=== PATIENT | female | born 1990 | race Caucasian/White ===

== ENCOUNTER 2021-01-12 09:23 | Emergency (ER) | payer OTHER, SELFPAY ==
[2021-01-12 09:32] VITALS: BP 170/92; PULSE 86; RESP 18; TEMP 36.6; O2SAT 97; BMI 36.3
--- NOTE | 2021-01-12 09:42 | CT_ITS ---
WS: [id number] CT ABDOMEN AND PELVIS WITH CONTRAST HISTORY: RLQ pain, sudden onset TECHNIQUE: Imaging performed of the abdomen and pelvis with IV contrast. Single phase imaging of the abdomen. Coronal and sagittal reformats are submitted. All CT scans at [facility] use at least one of these dose optimization techniques: automated exposure control; mA and/or kV adjustment per patient size (includes targeted exams where dose is matched to clinical indication); or iterativ e reconstruction. IV CONTRAST: Omnipaque 300; 95 mL IV. Oral contrast: No DLP: 1731.57 mGy.cm COMPARISON: 12/15/2014 Lower thorax: Lung bases are clear. Heart is normal size. Small hiatal hernia. Bilateral breast impla nts. Liver/biliary system: Normal size with no intrahepatic dilatation. Gallbladder: Normal. No gallstones or wall thickening. No pericholecystic fluid. Pancreas: Normal size pancreas and pancreatic duct. No adjacent inflammation. Spleen: Normal size spleen. No mass or infarct. Adrenal glands: Normal. Right kidney: Normal. Left kidney: Normal. Aorta: Normal. Lymphadenopathy: None. Free fluid: None. GI tract: Normal appendix. No obstruction or wall thickening. No colitis. Abdominal wall: Fat containing umbilical hernia. Pelvis: No free fluid or adenopathy within the pelvis. Bones: Unremarkable. CT/CT abdomen pelvis w con* [id number] IMPRESSION: 1. No renal stone or obstruction. 2. Normal appendix. 3. No GI tract obstruction. 4. No free air or free fluid.
--- NOTE | 2021-01-12 09:43 | W.ED.ABDPA2 ---
HPI - Abdominal Pain General: Chief Complaint: Abdominal Pain Stated Complaint: R side ABD pain Time Seen by Provider: 01/12/21 09:34 History of Present Illness: HPI narrative: Patient states she was doing fine till about 0 900 this morning had sudden onset right lower quadrant pain. Denies fever chills. Patient says she does feel nauseous and has not ate anything this morning. Has had a history of pyelonephritis. Is on Depo-Provera shot. MD elicited complaint: abdominal pain Pertinent past history: other (Pyelonephritis requiring hospitalization) Onset (ago): minute(s) Pain Consistency: constant Location: RLQ Severity: severe Quality: stabbing Radiation: none Exacerbating factors: nothing Relieving factors: nothing Associated Symptoms: Reports nausea; Denies chills and fever(s) Review of Systems Const: Denies: fever(s), chills or body aches Eyes: Denies: change in vision or blurry vision ENMT: Denies: throat pain or nasal congestion Card: Denies: chest pain or dyspnea on exertion Resp: Denies: dyspnea, productive cough or non-productive cough GI: Reports: abdominal pain and nausea Musc: Denies: extremity pain Skin/Breast: Denies: rash Neuro: Denies: headache(s) Psych: Denies: anxiety or depression Asif/Lymph: Denies: easy bruising Physical Exam Const: COMMON NORMALS: no acute distress, average body habitus and patient oriented x3 HENMT: COMMON NORMALS: normocephalic HEAD & SCALP: normal to inspection and normocephalic FACE & SINUS: normal facial exam Eye: COMMON NORMALS: conjunctivae normal GENERAL EYE: appearance normal, both eyes and all related structures CONJUNCTIVA: Yes conjunctivae normal Neck/C-Spine: COMMON NORMALS: no JVD Chest: COMMONS NORMALS: normal inspection of the chest Resp: COMMON NORMALS: normal respiratory effort and clear to auscultation bilaterally AUSCULTATION: clear to auscultation bilaterally Cardio: COMMON NORMALS: no JVD, regular rate and regular rhythm RATE: regular rate RHYTHM: regular rhythm GI: INSPECTION: Yes normal to inspection AUSCULTATION: Yes normoactive bowel sounds PALPATION: Yes Tenderness to palpation present (GI) Details: RLQ Extremity: COMMON NORMALS: normal to inspection and full ROM Neuro: COMMON NORMALS: patient oriented x3 Course Vital Signs: Vital signs: Vital Signs Temperature 98 F 01/12/21 09:32 Pulse Rate 86 01/12/21 09:32 Respiratory Rate 18 01/12/21 09:32 Blood Pressure 170/92 01/12/21 09:32 Pulse Oximetry 97 01/12/21 09:32 MDM - Abdominal Pain MDM Narrative: Medical decision making narrative: Radiology study was negative. Labs reveal slight increased white blood cell count and what appears to be a UTI. Patient was pain-free by the end of visit here. Lab Data: Labs: Lab Results 01/12/21 01/12/21 01/12/21 Range/Units 09:56 09:56 09:56 WBC 11.6 H (4.0-10.0) 10^3/ uL RBC 5.01 (4.1-5.3) 10^6/u L Hgb 15.6 H (11.5-15.3) g/dL Hct 44.7 (37.0-47.0) % MCV 89.2 (81-99) fL MCH 31.1 (28.0-34.0) pg MCHC 34.9 (30.0-36.0) g/dL RDW 11.6 L (12.1-15.1) % Plt Count 346 (130-400) 10^3/c mm MPV 10.2 (7.4-10.4) fL Neut % (Auto) 75.3 % Lymph % (Auto) 17.3 % [place] % (Auto) 5.5 % Eos % (Auto) 1.1 % Baso % (Auto) 0.5 % Neut # (Auto) 8.73 H (1.8-7.7) 10^3/u L Lymph # (Auto) 2.0 (0.8-4.8) 10^3/u L [place] # (Auto) 0.6 (0.2-0.9) 10^3/u L Eos # (Auto) 0.1 (0.0-0.8) 10^3/u L Baso # (Auto) 0.1 (0.0-0.1) 10^3/u L Nucleated RBC % (a uto) 0 % Nucleated RBCs # 0.0 /100WBC Sodium 138 (136-145) mmol/L Potassium 3.9 (3.5-5.1) mmol/L Chloride 104 (98-107) mmol/L Carbon Dioxide 22 (22-29) mmol/L Anion Gap 15.9 (5-19) BUN 8 (6-20) mg/dL Creatinine 0.7 (0.5-0.9) mg/dL GFR Calculation 97.0 (90-130) mL/min Glucose 106 (65-115) mg/dL Calculated Osmolal ity 285 (285-295) mOsm/k g Calcium 9.4 (8.5-10.5) mg/dL Total Bilirubin 0.4 (0.15-1.2) mg/dL AST 12 (0-32) U/L ALT 13 (0-33) U/L Alkaline Phosphata se 80 (35-105) IU/L Total Protein 7.4 (6.6-8.7) g/dL Albumin 4.6 (3.5-5.2) g/dL Globulin 2.8 (1.3-4.6) g/dL Lipase 119 H (13-60) U/L HCG, Qual Negative (Negative) Urine Color (Yellow) Urine Appearance (CLEAR) Urine pH (5-7) Ur Specific Gravit y (1.005-1.030) Urine Protein (Negative) Urine Glucose (UA) (Normal) Urine Ketones (Negative) Urine Blood (Negative) Urine Nitrate (Negative) Urine Bilirubin (Negative) Urine Urobilinogen (Negative) mg/dL Ur Leukocyte Lizeth ase (Negative) Urine RBC (0-2) /hpf Urine WBC (0-5) /hpf Ur Squamous Epith Cells (0-5) /hpf Amorphous Sediment Urine Bacteria (NONE) /hpf 01/12/21 Range/Units 10:00 WBC (4.0-10.0) 10^3/ uL RBC (4.1-5.3) 10^6/u L Hgb (11.5-15.3) g/dL Hct (37.0-47.0) % MCV (81-99) fL MCH (28.0-34.0) pg MCHC (30.0-36.0) g/dL RDW (12.1-15.1) % Plt Count (130-400) 10^3/c mm MPV (7.4-10.4) fL Neut % (Auto) % Lymph % (Auto) % [place] % (Auto) % Eos % (Auto) % Baso % (Auto) % Neut # (Auto) (1.8-7.7) 10^3/u L Lymph # (Auto) (0.8-4.8) 10^3/u L [place] # (Auto) (0.2-0.9) 10^3/u L Eos # (Auto) (0.0-0.8) 10^3/u L Baso # (Auto) (0.0-0.1) 10^3/u L Nucleated RBC % (a uto) % Nucleated RBCs # /100WBC Sodium (136-145) mmol/L Potassium (3.5-5.1) mmol/L Chloride (98-107) mmol/L Carbon Dioxide (22-29) mmol/L Anion Gap (5-19) BUN (6-20) mg/dL Creatinine (0.5-0.9) mg/dL GFR Calculation (90-130) mL/min Glucose (65-115) mg/dL Calculated Osmolal ity (285-295) mOsm/k g Calcium (8.5-10.5) mg/dL Total Bilirubin (0.15-1.2) mg/dL AST (0-32) U/L ALT (0-33) U/L Alkaline Phosphata se (35-105) IU/L Total Protein (6.6-8.7) g/dL Albumin (3.5-5.2) g/dL Globulin (1.3-4.6) g/dL Lipase (13-60) U/L HCG, Qual (Negative) Urine Color Yellow (Yellow) Urine Appearance Clear (CLEAR) Urine pH 6.5 (5-7) Ur Specific Gravit y 1.010 (1.005-1.030) Urine Protein Neg (Negative) Urine Glucose (UA) Norm (Normal) Urine Ketones Negative (Negative) Urine Blood 2+ H (Negative) Urine Nitrate Negative (Negative) Urine Bilirubin Neg (Negative) Urine Urobilinogen Norm (Negative) mg/dL Ur Leukocyte Lizeth ase Negative (Negative) Urine RBC 10-15 H (0-2) /hpf Urine WBC 0-4 H (0-5) /hpf Ur Squamous Epith Cells 0-4 H (0-5) /hpf Amorphous Sediment Not Reportable Urine Bacteria 4+ H (NONE) /hpf Discharge Plan Discharge Patient Disposition: Home Clinical Impression: Elevated lipase Abdominal pain Qualifiers: Abdominal location: right lower quadrant Qualified Code(s): R10.31 - Right lower quadrant pain UTI (urinary tract infection) Qualifiers: Urinary tract infection type: acute cystitis Hematuria presence: with hematuria Qualified Code(s): N30.01 - Acute cystitis with hematuria Condition: Stable Prescriptions: New Zofran 4 mg tablet 4 mg PO Q8H 3 Days Qty: 9 RF: 0 Macrobid 100 mg capsule 100 mg PO BID 5 Days Qty: 10 RF: 0 Discharge Orders: Discharge ED (Routine); Ordered 01/12/21 Ordered By: Henry Mullins Discharge Diet: Advance as tolerated Discharge Activity: Resume usual activity Patient Instructions: Urinary Tract Infection in Women (ED) Activity Restrictions/Additional Instructions: Follow-up with medical provider as directed. Take medications as prescribed. Return to the ER or your medical provider if condition worsens. Please read and understand discharge instructions. If any questions ask please. Follow-up with your primary care provider first next week repeat urine level and lipase level. Coding Level of Care Code ED Latin Professor for Gautam Fwd Exam Comprehensive
[2021-01-12] MEDS: ondansetron 2 mg/ML SDV 2 mL 4 MG IVP (09:59)
[2021-01-12] MEDS: sodium chloride 0.9% 1,000 ML 999 ML IV (09:59)
[2021-01-12] MEDS: morphine 4 mg/mL SDV 1 mL IVP (09:59)
[2021-01-12 10:06] LABS: Basophils # 0.1 10^3/uL (0.0-0.1); Basophils % 0.5 %; Eosinophils # 0.1 10^3/uL (0.0-0.8); Eosinophils % 1.1 %; Hematocrit 44.7 % (37.0-47.0); Hemoglobin 15.6 g/dL (11.5-15.3); Lymphocytes % 17.3 %; Mean Corpuscular HGB Conc 34.9 g/dL (30.0-36.0); Mean Corpuscular Hemoglobin 31.1 pg (28.0-34.0); Mean Corpuscular Volume 89.2 fL (81-99); Mean Platelet Volume 10.2 fL (7.4-10.4); Monocytes # 0.6 10^3/uL (0.2-0.9); Monocytes % 5.5 %; Neutrophils # 8.73 10^3/uL (1.8-7.7); Neutrophils % 75.3 %; Nucleated Red Blood Cells % 0 %; Platelet Count 346 10^3/cmm (130-400); Red Blood Count 5.01 10^6/uL (4.1-5.3); Red Cell Distribution Width 11.6 % (12.1-15.1); White Blood Count 11.6 10^3/uL (4.0-10.0)
[2021-01-12 10:14] LABS: Add Urine Microscopic? YES; Bilirubin Urine Neg (Negative); Blood Urine 2+ (Negative); Glucose Urine UA Norm (Normal); Ketones Urine Negative (Negative); Leukocyte Esterase Urine Negative (Negative); Nitrate Urine Negative (Negative); Protein Urine Neg (Negative); Urine Appearance Clear (CLEAR); Urine Color Yellow (Yellow); Urobilinogen Urine Norm (Negative); pH Urine 6.5 (5-7)
[2021-01-12 10:15] LABS: HCG, Serum Qual Negative (Negative)
[2021-01-12 10:23] LABS: Bacteria Urine 4+ /hpf; Squamous Epithelial Cell Urine 0-4 /hpf (0-5); WBC Urine 0-4 /hpf (0-5)
[2021-01-12 10:24] LABS: Add Urine Culture? Yes
[2021-01-12 10:28] LABS: Alanine Aminotransferase 13 U/L (0-33); Albumin Level 4.6 g/dL (3.5-5.2); Alkaline Phosphatase 80 IU/L (35-105); Anion Gap 15.9 (5-19); Aspartate Amino Transferase 12 U/L (0-32); Blood Urea Nitrogen 8 mg/dL (6-20); Calcium 9.4 mg/dL (8.5-10.5); Carbon Dioxide 22 mmol/L (22-29); Chloride 104 mmol/L (98-107); Creatinine Clr Calc Pharmacy 148.7142; Globulin 2.8 g/dL (1.3-4.6); Glucose 106 mg/dL (65-115); Lipase 119 U/L (13-60); Osmolality Calculated 285 mOsm/kg (285-295); Potassium 3.9 mmol/L (3.5-5.1); Sodium 138 mmol/L (136-145); Total Bilirubin 0.4 mg/dL (0.15-1.2); Total Protein 7.4 g/dL (6.6-8.7)
[2021-01-12] MEDS: iohexol 300 mg/mL 100 mL Btl IV (10:52)
[2021-01-12] MEDS: nitrofurantoin SR (BID) 100 mg Capsule PO (11:11)
== END 2021-01-12 11:25 | disposition home or self-care (01) ==
PROVIDERS: Emergency Provider Nurse Practitioner Family
DX: N30.01 Acute cystitis with hematuria (principal); R79.89 Other specified abnormal findings of blood chemistry
CPT/HCPCS: 74177; 80053; 81001; 83690; 84703; 85025; 87086; 96361; 96374; 96375; 99283; J2270; J2405; J7030; Q9967

== ENCOUNTER 2021-03-25 12:56 | Observation (INO) | payer OTHER, SELFPAY ==
[2021-03-25] VITALS (14 sets, daily range): BP systolic 128–150; BP diastolic 86–108; PULSE 73–96; RESP 16–24; TEMP 37.2; O2SAT 95–100; BMI 35.7
--- NOTE | 2021-03-25 14:08 | ECG_ITS ---
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 Measurements Intervals [place] Rate: 78 P: 48 UT: 174 QRS: 91 QRSD: 92 T: 48 QT: 382 QTc: 437 Interpretive Statements SINUS RHYTHM BORDERLINE RIGHT AXIS DEVIATION [QRS AXIS > 90] ST ELEVATION, PROBABLY EARLY REPOLARIZATION [ST ELEVATION WITH NORMALLY INFLECTED T-WAVE] MINIMAL ST DEPRESSION [0.025+ mV ST DEPRESSION] Compared to ECG 05/03/2019 16:15:07 ST (T wave) deviation now present Early repolarization now present T-wave abnormality no longer present Electronically Signed On 03-26-2021 18:42:45 CDT by Pepper Hand M.D. [id number]
--- NOTE | 2021-03-25 14:08 | XR_ITS ---
WS: [id number] XR chest 1V portable [id number] REASON FOR EXAM: chest pain FINDINGS: The heart and mediastinum are within normal limits. Calcified granulomatous disease is seen in both hemithoraces. No active pulmonary parenchymal or pleural disease. Bony thorax is intact. The chest is unchanged compared to 05/03/2019. XR/XR chest 1V portable [id number] IMPRESSION: No acute chest abnormality.
--- NOTE | 2021-03-25 14:08 | ED_ITS ---
HPI - Chest Pain General: Chief Complaint: Chest Pain Stated Complaint: SHARP CHEST PAINS Time Seen by Provider: 03/25/21 14:08 History of Present Illness: HPI narrative: Ms. Connolly is a 30-year-old lady with history of tobaccoism and obesity who presents emergency department due to chest pain. Symptom onset was subacute while at work yesterday evening. She endorses moderate intensity aching occasional tightness with mild sharp component in the middle of her chest without significant radiation. This is not worse with deep breathing. Overall the course of symptoms has persisted. She has mild associated nausea, no significant shortness of breath. She endorses generalized malaise but no other focal symptoms. She denies similar episodes in the past. No other specific exacerbating or relieving factors identified. Review of Systems General: Reports: 10 or more systems reviewed and unremarkable except in HPI and below PFSH ED PFSH: Social History Smoking and tobacco status: current every day smoker History of recent travel: No Physical Exam Narrative: EXAM NARRATIVE: GENERAL/CONSTITUTIONAL - well-appearing. No acute distress. Obese. Eyes - PERRL, no conjunctival injection ENMT - Atraumatic external nose and ears. Moist mucous membranes NECK - supple. trachea midline CARDIOVASCULAR - regular rate and rhythm. Peripheral pulses 2+ and equal. RESPIRATORY -clear to auscultation bilaterally. No retractions or accessory muscle use. ABDOMEN/GI - Nontender. Nondistended. No tenderness to percussion or evidence of peritonitis MSK - Extremities without obvious deformity or tenderness to palpation SKIN - Warm, Dry NEURO - alert and appropriately oriented. strength and sensation intact. Moves all extremities equally. PSYCH - Appropriate mood and affect Course ED course: - Patient was seen and evaluated by me at bedside - Patient placed on cardiac monitors, IV access obtained - Initial evaluation notable for no acute distress, nontoxic appearance. Mildly uncomfortable. Chest pain is not reproducible with physical palpation on exam or deep inspiration. - Symptom treatment ordered - Patient's initial EKG difficult to interpret due to baseline however does appear somewhat concerning. Once EKG was obtained with adequate baseline for interpretation the patient definitively does not meet STEMI criteria however continues to have an atypical appearance. Image sent to cardiology wildlife biostation research ecologist. - Labs notable for no leukocytosis, mild hemoconcentration. No significant metabolic abnormalities to explain the patient's symptoms. Urinalysis not concerning for urinary tract infection in the absence of positive nitrates, leukocyte esterase, or urine WBCs. Patient's troponin is elevated. - Imaging notable for no lobar consolidation or other significant abnormality. - Patient's initial troponin is elevated far above expected range for a 30-year-old and, despite 1 L fluid resuscitation, increased on 2-hour interval. - Discussed case with cardiology clinical recruiter wildlife biostation research ecologist who came to evaluate the patient. Prior to evaluating the patient he requested echocardiogram which was ordered and reportedly without significant abnormality. - Patient taken to [facility] in satisfactory condition without acute decompensation or significant event. Vital Signs: Vital signs: Vital Signs Temperature 98.9 F 03/25/21 13:34 Pulse Rate 87 03/25/21 21:31 Respiratory Rate 16 03/25/21 21:31 Blood Pressure 135/86 03/25/21 21:31 Pulse Oximetry 100 03/25/21 21:31 MDM - Chest Pain Medical Records: Attestation: I reviewed the patient's medical records. Lab Data: Attestation: I reviewed the patient's lab results. Labs: Lab Results 03/25/21 03/25/21 03/25/21 Range/Units 14:08 14:08 14:08 WBC 10.0 (4.0-10.0) 10^3/ uL RBC 5.30 (4.1-5.3) 10^6/u L Hgb 17.0 H (11.5-15.3) g/dL Hct 47.4 H (37.0-47.0) % MCV 89.4 (81-99) fl MCH 32.1 (28.0-34.0) pg MCHC 35.9 (30.0-36.0) g/dL RDW 11.4 L (12.1-15.1) % Plt Count 369 (130-400) 10^3/c mm MPV 10.1 (7.4-10.4) fL Neut % (Auto) 68.7 % Lymph % (Auto) 20.2 % [place] % (Auto) 8.3 % Eos % (Auto) 1.6 % Baso % (Auto) 0.8 % Neut # (Auto) 6.90 (1.8-7.7) 10^3/u L Lymph # (Auto) 2.0 (0.8-4.8) 10^3/u L [place] # (Auto) 0.8 (0.2-0.9) 10^3/u L Eos # (Auto) 0.2 (0.0-0.8) 10^3/u L Baso # (Auto) 0.1 (0.0-0.1) 10^3/u L Nucleated RBC % (a uto) 0 % Nucleated RBCs # 0.0 /100WBC APTT (23.9-36.7) SECO NDS Sodium 139 (136-145) mmol/L Potassium 3.8 (3.5-5.1) mmol/L Chloride 102 (98-107) mmol/L Carbon Dioxide 25 (22-29) mmol/L Anion Gap 15.8 (5-19) BUN 8 (6-20) mg/dL Creatinine 0.6 (0.5-0.9) mg/dL GFR Calculation 115.9 (90-130) mL/min Glucose 81 (65-115) mg/dL Calculated Osmolal ity 285 (285-295) mOsm/k g Calcium 9.6 (8.5-10.5) mg/dL Total Bilirubin 0.3 (0.15-1.2) mg/dL AST 19 (0-32) U/L ALT 15 (0-33) U/L Alkaline Phosphata se 86 (35-105) IU/L Troponin T Baselin e 98 H (0-10) ng/L Troponin T 120 [place] (0-10) ng/L Delta Troponin T (0-10) ABS# NT-Pro-B Natriuret Pep (0-125) pg/mL Total Protein 6.9 (6.6-8.7) g/dL Albumin 4.5 (3.5-5.2) g/dL Globulin 2.4 (1.3-4.6) g/dL Lipase 26 (13-60) U/L 03/25/21 03/25/21 03/25/21 Range/Units 14:08 16:15 17:12 WBC (4.0-10.0) 10^3/ uL RBC (4.1-5.3) 10^6/u L Hgb (11.5-15.3) g/dL Hct (37.0-47.0) % MCV (81-99) fl MCH (28.0-34.0) pg MCHC (30.0-36.0) g/dL RDW (12.1-15.1) % Plt Count (130-400) 10^3/c mm MPV (7.4-10.4) fL Neut % (Auto) % Lymph % (Auto) % [place] % (Auto) % Eos % (Auto) % Baso % (Auto) % Neut # (Auto) (1.8-7.7) 10^3/u L Lymph # (Auto) (0.8-4.8) 10^3/u L [place] # (Auto) (0.2-0.9) 10^3/u L Eos # (Auto) (0.0-0.8) 10^3/u L Baso # (Auto) (0.0-0.1) 10^3/u L Nucleated RBC % (a uto) % Nucleated RBCs # /100WBC APTT 30.8 (23.9-36.7) SECO NDS Sodium (136-145) mmol/L Potassium (3.5-5.1) mmol/L Chloride (98-107) mmol/L Carbon Dioxide (22-29) mmol/L Anion Gap (5-19) BUN (6-20) mg/dL Creatinine (0.5-0.9) mg/dL GFR Calculation (90-130) mL/min Glucose (65-115) mg/dL Calculated Osmolal ity (285-295) mOsm/k g Calcium (8.5-10.5) mg/dL Total Bilirubin (0.15-1.2) mg/dL AST (0-32) U/L ALT (0-33) U/L Alkaline Phosphata se (35-105) IU/L Troponin T Baselin e (0-10) ng/L Troponin T 120 [place] 119.5 H (0-10) ng/L Delta Troponin T 21.5 H* (0-10) ABS# NT-Pro-B Natriuret Pep 159 H (0-125) pg/mL Total Protein (6.6-8.7) g/dL Albumin (3.5-5.2) g/dL Globulin (1.3-4.6) g/dL Lipase (13-60) U/L EKG Data^: EKG 1: Attestation: I personally reviewed and interpreted this EKG as follows: EKG interpretation date: 03/25/21 EKG interpretation time: 13:35 Interpretation: Twelve-lead EKG shows a regular sinus rhythm at a rate of 81. [place] interval 170, QRS duration 91, QTc 419. Normal axis. Interpretation: Atypical appearance of ST segments in inferior leads, there is some baseline wander. Nurse instructed to repeat as soon as possible. EKG 2: Attestation: I personally reviewed and interpreted this EKG as follows: EKG interpretation date: 03/25/21 EKG interpretation time: 13:58 Prior EKG tracings: available for review Interpretation: Twelve-lead EKG shows a regular sinus rhythm at a rate of 78. [place] interval 174, QRS duration 92, QTc 416. Normal axis. Interpretation: Continued difficulty with baseline wander, no STEMI. EKG 3: Attestation: I personally reviewed and interpreted this EKG as follows: EKG interpretation date: 03/25/21 EKG interpretation time: 15:31 Interpretation: Twelve-lead EKG shows a regular sinus rhythm at a rate of 78. [place] interval 179, QRS duration 96, QTc 429. Normal axis. Interpretation: Sinus rhythm. No STEMI. Concerning appearance of inferior lead ST segment abnormalities. Discharge Plan Discharge Patient Disposition: Admitted As Inpatient Admit Provider: Yuliana Resendiz Condition: Stable Discharge Diet: Cardiac Discharge Activity: Increase activity as tolerated Coding Level of Care Code ED Tread Tuber Machine Operator for Gautam Lin
[2021-03-25 14:28] LABS: Basophils # 0.1 10^3/uL (0.0-0.1); Basophils % 0.8 %; Eosinophils # 0.2 10^3/uL (0.0-0.8); Eosinophils % 1.6 %; Hematocrit 47.4 % (37.0-47.0); Lymphocytes % 20.2 %; Mean Corpuscular HGB Conc 35.9 g/dL (30.0-36.0); Mean Corpuscular Hemoglobin 32.1 pg (28.0-34.0); Mean Corpuscular Volume 89.4 fl (81-99); Mean Platelet Volume 10.1 fL (7.4-10.4); Monocytes # 0.8 10^3/uL (0.2-0.9); Monocytes % 8.3 %; Neutrophils % 68.7 %; Nucleated Red Blood Cells % 0 %; Platelet Count 369 10^3/cmm (130-400); Red Cell Distribution Width 11.4 % (12.1-15.1)
[2021-03-25 14:48] LABS: Alanine Aminotransferase 15 U/L (0-33); Albumin Level 4.5 g/dL (3.5-5.2); Alkaline Phosphatase 86 IU/L (35-105); Anion Gap 15.8 (5-19); Aspartate Amino Transferase 19 U/L (0-32); Blood Urea Nitrogen 8 mg/dL (6-20); Calcium 9.6 mg/dL (8.5-10.5); Carbon Dioxide 25 mmol/L (22-29); Chloride 102 mmol/L (98-107); Globulin 2.4 g/dL (1.3-4.6); Glomerular Filtration Rate 115.9 mL/min (90-130); Glucose 81 mg/dL (65-115); Lipase 26 U/L (13-60); Osmolality Calculated 285 mOsm/kg (285-295); Potassium 3.8 mmol/L (3.5-5.1); Sodium 139 mmol/L (136-145); Total Bilirubin 0.3 mg/dL (0.15-1.2); Total Protein 6.9 g/dL (6.6-8.7)
[2021-03-25 14:57] LABS: Troponin(5th) Baseline 98 ng/L (0-10)
[2021-03-25] MEDS: lidocaine 2% viscous 15 ML, aluminum-mag hydrox-simethicon 30 ML, sucralfate oral liq 1 GM PO (15:16)
[2021-03-25] MEDS: aspirin 81 mg Chew Tablet 324 MG PO (15:41)
[2021-03-25] MEDS: lactated ringers 1,000 ML 999 ML IV (15:43)
--- NOTE | 2021-03-25 16:08 | ECG_ITS ---
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 Measurements Intervals [place] Rate: 78 P: 53 [place]: 179 QRS: 70 QRSD: 96 T: 53 QT: 396 QTc: 451 Interpretive Statements SINUS RHYTHM MINIMAL ST DEPRESSION [0.025+ mV ST DEPRESSION] Compared to ECG 03/25/2021 13:54:44 Early repolarization no longer present ST (T wave) deviation still present Electronically Signed On 03-26-2021 19:16:29 CDT by Pepper Hand M.D. [id number] f
--- NOTE | 2021-03-25 16:10 | USCV_ITS ---
Faby Connolly Age: 30 Gender: F : 1990 Exam Date: 03/25/2021 16:45 Ordering Phys: Bernardino Conteh MD Technologist: [place] [facility] [place]: [place]ST PAIN BP: 149 / 94 HR: 73 Rhythm: Sinus Technical Quality: Adequate MEASUREMENTS (Male / Female) Normal Values 2D ECHO LV Diastolic Diameter PLAX 4.3 cm 4.2 - 5.9 / 3.9 - 5.3 cm LV Systolic Diameter PLAX 2.9 cm IVS Diastolic Thickness 0.9 cm 0.6 - 1.0 / 0.6 - 0.9 cm IVS Systolic Thickness 1.3 cm LVPW Diastolic Thickness 0.9 cm 0.6 - 1.0 / 0.6 - 0.9 cm LVPW Systolic Thickness 1.8 cm LVOT Diameter 2.0 cm LV Ejection Fraction 2D Teich 63.2 % LV Ejection Fraction MOD 2C 73.6 % LV Ejection Fraction 2C AL 74.2 % LA Diameter 3.4 cm LA Width 3.1 cm LA Height 4.5 cm RA Width 3.1 cm RA Height 4.3 cm DOPPLER AV Peak Velocity 124.0 cm/s LVOT Peak Velocity 94.0 cm/s AV Area Cont Eq vti 3.0 cm squared AV Area Cont Eq pk 2.5 cm squared MV Area PHT 5.0 cm squared Mitral E to A Ratio 1.3 MV E' Velocity 51.5 cm/s Mitral E to MV E' Ratio 5.9 Mitral E to LV E' Lateral Ratio 5.7 Mitral E to LV E' Septal Ratio 6.2 TR Peak Velocity 129.7 cm/s TR Peak Gradient 6.7 mmHg TV Peak E Velocity 99.0 cm/s Right Atrial Pressure 3.0 mmHg Pulmonary Artery Systolic Pressu 9.7 mmHg FINDINGS Left Ventricle Normal left ventricular size, systolic function and wall thickness, with no regional wall motion abnormalities. Left ventricular ejection fraction is estimated at 65 %. Normal diastolic function. Right Ventricle Normal right ventricular size and systolic function. Right ventricular systolic pressure 12 mmHg. Right Atrium Normal right atrial size. Left Atrium Normal left atrial size. Mitral Valve Structurally normal mitral valve. No mitral valve stenosis. Trace mitral valve regurgitation. Aortic Valve Aortic valve not well visualized. No aortic valve stenosis. No aortic valve regurgitation. Tricuspid Valve Structurally normal tricuspid valve. Pulmonic Valve Structurally normal pulmonic valve. No pulmonary valve stenosis. Pericardium No pericardial effusion. Aorta Normal aortic arch. CONCLUSIONS 1. Normal left ventricular size, systolic function and wall thickness, with no regional wall motion abnormalities. Left ventricular ejection fraction is estimated at 65 %. Normal diastolic function. 2. Normal right ventricular size and systolic function. 3. No significant valvular abnormality. 4. No intracardiac masses or pericardial effusion. 5. Normal pulmonary artery pressure. 6. No prior similar studies to compare. Pepper Hand MD (Electronically Signed) Final Date: 25 March 2021 20:38 S
[2021-03-25] MEDS: ketorolac 30 mg/mL INJ 15 MG IVP (16:24)
[2021-03-25 17:05] LABS: Troponin 5 2HR 119.5 ng/L (0-10); Troponin 5 2HR Delta 21.5 ABS# (0-10)
--- NOTE | 2021-03-25 17:06 | CTR_ITS ---
PROCEDURE INFORMATION: Exam: CTA Chest With Contrast Exam date and time: 03/25/2021 5:06 PM Age: 30 years old Clinical indication: Pain; Chest pressure; Prior surgery; Surgery type: Breast aug; Additional info: Chest pain, nstemi TECHNIQUE: Imaging protocol: Computed tomographic angiography of the chest with contrast. 3D rendering (Not supervised by radiologist): MIP and/or 3D reconstructed images were created by the technologist. Radiation optimization: All CT scans at this facility use at least one of these dose optimization techniques: automated exposure control; mA and/or kV adjustment per patient size (includes targeted exams where dose is matched to clinical indication); or iterative reconstruction. Contrast material: OMNI; Contrast volume: 95 ml; Contrast route: INTRAVENOUS (IV); COMPARISON: CR XR chest 1V portable [id number] 03/25/2021 2:14 PM RADIATION DOSE METRICS: Total DLP (mGy-cm): 516.4 FINDINGS: Pulmonary arteries: Normal. No pulmonary emboli. Aorta: Unremarkable. No aortic aneurysm. No aortic dissection. Lungs: Unremarkable. No consolidation. No masses. Pleural spaces: Unremarkable. No pneumothorax. No pleural effusion. Heart: Unremarkable. No cardiomegaly. No pericardial effusion. Lymph nodes: Unremarkable. No enlarged lymph nodes. Bones/joints: Unremarkable. No acute fracture. Soft tissues: Unremarkable. CT/CT angio chest PE protcl [id number] IMPRESSION: Negative for pulmonary embolus or airspace infiltrate. Radiation Dose CTDIVOL = (mGy): DLP = 516.4 (mGy-cm)
[2021-03-25] MEDS: iohexol 350 mg/mL 100 mL Btl IV (17:39)
[2021-03-25 17:45] LABS: NT Pro B Type Natriuretic Pept 159 pg/mL (0-125)
[2021-03-25] MEDS: heparin 5,000 unit/mL INJ 1 mL 4000 UNIT IVP (17:51)
[2021-03-25] MEDS: heparin drip 25,000 UNIT/500 ML PREMIX 35.33 UNIT IV (17:52)
[2021-03-25 17:57] LABS: Partial Thromboplastin Time 30.8 SECONDS (23.9-36.7)
--- NOTE | 2021-03-25 18:03 | XACV_ITS ---
Ht: 150 cm Wt: 80 kg BSA: 1.87 m2 Gender: Female : 1990 Any Known Allergies: Other Exam Priority: Routine Procedure(s): Procedure Description: Diagnostic procedure Procedure Description: Left Heart Catheterization Procedure Description: Left ventriculography Procedure Description: Coronary Angiography Procedure Description: Pressure Wire Diagnostic Cath Status: Urgent Diagnostic Findings * Left Main has no disease. * Left Anterior Descending has no disease. * Right Coronary Artery has no disease. * Proximal Circumflex: obstructive 70% stenosis, TA: 3 flow. * Coronary angiography shows co-dominance. Conclusions 1. FFR: After equalizing the distal and proximal pressure of FFR wire proximal to the lesion, proximal LCx lesion was crossed with FFR wire. IV adenosine at rate of 140 mcg/min was started. Patient did not compliant of any symptoms, at then end of two minutes FFR was recorded as 0.96, which is not significant . 2. There is obstructive coronary artery disease with one vessel disease. 3. All lorenzo are normal. 4. Normal left ventricular systolic function. Ejection fraction of 60%. Recommendations * Continue current medical management and risk factor modification. Diagnostic RX Recommendation: medical therapy and/or counseling LV EDP: 22 mmHg Ventriculography Ejection Fraction: 60.0 % Left Ventriculography Findings: * Normal left ventricle ejection fraction no wall motion abnormality. Pressures Phase:Rest AO : 119 / 60 ( 77 ) @ 5:38:00 PM 106 / 76 ( 92 ) @ 5:38:00 PM 176 / 98 ( 126 ) @ 5:45:00 PM 176 / 102 ( 115 ) @ 5:45:00 PM 141 / 88 ( 111 ) @ 5:47:00 PM 155 / 81 ( 116 ) @ 6:07:00 PM 159 / 70 ( 113 ) @ 6:07:00 PM LV : 169 / -5 21 @ 6:05:00 PM 152 / -10 / 17 @ 6:06:00 PM 170 / -10 / 22 @ 6:07:00 PM Valves Phase:DefaultPhase AV : 12.0 @ 7:12:34 PM AV Mean Gradient: 17.0 @ 7:12:34 PM Clinical Evaluation EBL: 5mL-10mL Procedural Details Pre-Procedure Time Out. Identified patient by full name and date of as verbalized by the patient/guarantor. Does the consent match the physician's order: Yes. Accurate & Complete Informed Consent: Yes. Inpatient/Outpatient History & Physical on Chart: Yes. If H&P is completed, is and addenduem needed: No; If yes, is the addendum complete: N/A. Visualize and Verify Site with Patient/Guarantor: N/A. Relevant Radiology Images available: Yes. Pre-op teaching completed and patient verbalized understanding. The risks, benefits, and alternatives of sedation and/or procedure were discussed by physician. The patient agrees to continue. Procedure started. [facility] Clinical Fraility Score: 3: Managing Well. Office Executive Indications: Other. Chest Pain Symptom Assessment: Typical Angina Symptoms. PERRLA. 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 Lungs clear x 5 lobes. IV Site on Arrival: 18 gauge in the left anticubital. IV Fluids: 0.9% NaCl at KVO. 100 mL infused prior to vp lab. Oxygen started at 2liters/min via nasal canula. right groin was prepped with chloroprep then draped in the usual sterile fashion. right radial was prepped with chloroprep then draped in the usual sterile fashion. Physician notified. Physician arrived. Baseline sample Acquired. HR: 82 BPM. Physician scrubbed in. Immediate Pre-Procedure Time Out. Correct Patient: Yes; Correct Procedure: Yes; Correct Site: Yes; Correct Patient Position: Yes; Correct Supplies: Yes; Dried Flammable Prep: Yes; Blood Products Available: N/A;. Lidocaine 1% infiltrated to the right groin. Arterial access obtained. A 5 new zealander TIG catheter in over wire. ACT drawn. Results 124 seconds. Therapeutic limits - pre-heparin administration 90-150 seconds and monitoring heparin during a vascular procedure >250 seconds. Multiple views taken of right coronary artery. Catheter redirected to the LCA. Catheter removed over the exchange wire. A 5 new zealander JL3.5 catheter in over wire. Catheter removed over the exchange wire. Inventory is CRD 6FR XB 3 GUIDE. 6 new zealander XB 3 guide catheter was inserted over the wire. Multiple views taken of left coronary artery. Physician review of cine films. FFR guidewire was advanced through the guide catheter to lesion in the prox Circ. An FFR value of 0.96 was obtained for a lesion located at Prox CX. Wire out. Results checked. Guide catheter out. A 5 new zealander Angled Pig catheter in over wire. EDP Sample taken: LV 169/-6,21; HR: 84 BPM; SpO2: 93%. LV gram performed in PALACIOS @ 10 mL/second for a total of 30 mL. EDP Sample taken: LV 152/-11,17; HR: 93 BPM; SpO2: 92%. Pullback taken: LV 170/-11,22; AO 155/81(116); Mean: 17mmHg, Peak to Peak: 12mmHg, SEP: 23sec/min; HR: 84 BPM; SpO2: 92%. Catheter removed over the exchange wire. A TR Band was successful obtaining hemostatsis at the Right Radial artery insertion site. TR band placed. Hemostasis obtained. PERRLA. 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 No VTE prophylaxis required. Medication's Wasted: Lidocaine 1% = 14 mL. Medication's Wasted: Nitro = 49.8 mcg. Medication's Wasted: Heparin = 1000 units. Medication's Wasted: Other = Adenosine 68 mg. Total IV fluids: 75 mL. Complications: None. Estimated blood loss: 5mL-10mL. Procedure completed. Vital chart was stopped. Patient transferred by wheelchair to 1st floor. Access Site Site: Right Radial artery Sheath Size: 6 Fr Hemostasis Method: TR Band Hemostasis Success: Successful Procedure Medications Start: 6:29 PM Stop: 6:29 PM Medication: Versed 1 mg and Fentanyl 25 mcg Amount: 1 Route: I.V. Start: 6:26 PM Stop: 6:26 PM Medication: Versed 1 mg and Fentanyl 25 mcg Amount: 1 Route: I.V. Start: 6:29 PM Stop: 6:29 PM Medication: Versed 1 mg and Fentanyl 25 mcg Amount: 1 Route: I.V. Start: 6:30 PM Stop: 6:30 PM Medication: Nitrogylcerin Amount: 200 mcg Route: I.A. Start: 6:33 PM Stop: 6:33 PM Medication: Versed Amount: 1 mg Route: I.V. Start: 6:38 PM Stop: 6:38 PM Medication: Heparin Amount: 5000 units Route: I.V. Start: 6:41 PM Stop: 6:41 PM Medication: Fentanyl Amount: 25 mcg Route: I.V. Start: 6:45 PM Stop: 6:45 PM Medication: Versed Amount: 1 mg Route: I.V. Start: 6:53 PM Stop: 6:53 PM Medication: Versed Amount: 1 mg Route: I.V. I, the attending physician, have reviewed and verified all procedure medications. Yes, all medications given per verbal order History/Risk Factors Hypertension: No Dyslipidemia: No Peripheral Arterial Disease (PAD): No Myocardial Infarction (VA): No Obesity: Yes Renal Disease: No Tobacco Use: Current/Recent(w/in 1 year) Prior Interventions PCI: No CABG: No Valve Surgery: No Report Signatures Finalized by Yuliana Resendiz MD on 04/07/2021 08:15 PM
--- NOTE | 2021-03-25 18:21 | PM.HP ---
Providers/Chief Complaint Chief Complaint: SHARP CHEST PAINS History of Present Illness Faby Connolly is a 30 year old female past medical history significant for continuous tobacco abuse for the hypertension family history of coronary artery disease for the last 24-hour was struggling with heartburn-like symptoms. This afternoon when chest pressure become more consistent therefore she decided to come here. Patient admits to being under a lot of stress due to newly diagnosis cancer in her mother. Pain is not typical it is in the epigastric region sometimes she says that it relieves on bending forward at other times it is there for ever. She denies that it relieved with nitroglycerin. Twelve-lead EKG was suggestive of early repolarization abnormality versus pericarditis. Initial troponin bumped up from 90-120. Since patient continues to have chest pressure and she has been ruled out for pulmonary embolism we will therefore proceed with left heart cath. Medications/Allergies Home Medications Medication Instructions Recorded Confirmed Last Taken Type atenolol 25 mg tablet 50 mg PO BID tab 02/17/21 03/25/21 03/25/21 History buspirone 5 mg tablet 5 mg PO TID 02/17/21 03/25/21 03/25/21 History clindamycin phosphate 1 % lotion 1 applic TOPICAL BID #60 ml 02/17/21 03/25/21 03/25/21 Rx hydroxyzine HCl 25 mg tablet 25 mg PO BID PRN 02/17/21 03/25/21 03/25/21 History venlafaxine 37.5 mg 37.5 mg PO DAILY 02/17/21 03/25/21 03/25/21 History capsule,extended release 24 hr Drysol Dab-O-Matic See Rx Instructions .ROUTE .COMPLEX 03/25/21 03/25/21 03/25/21 History aspirin 81 mg PO DAILY #90 tab 03/25/21 Unknown Rx atorvastatin 40 mg PO BEDTIME #30 tab 03/25/21 Unknown Rx baclofen 5 mg PO TID 03/25/21 03/25/21 03/25/21 History clopidogrel 75 mg PO DAILY #90 tab 03/25/21 Unknown Rx isosorbide mononitrate 30 mg PO DAILY #30 tab 03/25/21 Unknown Rx medroxyprogesterone See Rx Instructions .ROUTE .COMPLEX 03/25/21 03/25/21 Unknown History nitroglycerin [Nitrostat] 0.4 mg SUBLINGUAL Q5M #30 tab 03/25/21 Unknown Rx Allergies Allergy/AdvReac Type Severity Reaction Status Date / Time amoxicillin Allergy ALGY-Rash Verified 03/25/21 13:34 sulfamethoxazole Allergy ALGY-Hives Verified 03/25/21 13:34 [From Bactrim] trimethoprim [From Bactrim] Allergy ALGY-Hives Verified 03/25/21 13:34 PFSH Acute PFSH: Medical History (Updated 03/26/21 @ 20:20 by Yuliana Resendiz MD) Anxiety HTN (hypertension) Social History Smoking and tobacco status: current every day smoker History of recent travel: No Vitals/I&O/Wt Last Vital Signs Temp 98.9 F 03/25/21 13:34 Pulse 87 03/25/21 18:16 Resp 18 03/25/21 18:16 BP 129/90 03/25/21 18:16 Pulse Ox 98 03/25/21 18:16 Weight last 48 hrs Weight 177 lb Physical Exam Narrative: EXAM NARRATIVE: GENERAL: Patient is alert, awake and oriented x3. NECK: No jugular vein distension. HEENT: No cyanosis. No icterus. No pallor. HEART: Regular S1 and S2. No murmur, rub or gallop. LUNGS: Clear to auscultate bilaterally. ABDOMEN: Soft, nontender and nondistended. Positive bowel sounds. No guarding, rebound or tenderness. CENTRAL NERVOUS SYSTEM: Grossly nonfocal. EXTREMITIES: Lower extremities without edema bilaterally. Data : 03/25/21 14:08 03/25/21 14:08 A&P Assessment and plan (1) Acute coronary syndrome: Since patient continues to have chest pain with escalating cardiac markers we will proceed with left heart cath. My differential diagnosis would be stress-induced cardiomyopathy versus myopericarditis however cannot rule out obstructive coronary artery disease. Patient currently is being treated for ACS protocol. Patient has been explained all risk benefit and already for the procedure she understand risk for contrast-induced nephropathy bleeding major minor, urgent emergent bypass surgery arrhythmia and aneurysm vascular injury and stroke. She would like to proceed with it. Status: Acute (2) HTN (hypertension): Well-controlled. Status: Acute Qualifiers: Hypertension type: essential hypertension Qualified Code(s): I10 - Essential (primary) hypertension (3) Anxiety: May require treatment for anxiety we will leave it to primary care physician. Status: Acute Attestations Medical Necessity Statement*: Patient is under observation for left heart cath and postoperative care Coding Level of Care Code New Pt Acute Alliance Manager for Chg Fwd Patient Type New History Detailed Exam Detailed Medical Decision Making Moderate Complexity Diagnoses Acute coronary syndrome I24.9 HTN (hypertension) I10 Hypertension type: essential hypertension Anxiety F41.9
--- NOTE | 2021-03-25 19:45 | PC.NURSE ---
Transfer Note Patient transferred to 103 from lab coordinator via wheelchair. Handoff received from FLASH Leblanc. Patient oriented to environment and equipment. Covering service notified. Orders reviewed and will continue to monitor. Patient is to be discharged when TR Band is removed. Telemetry in place and monitoring VS every 15min. Dr Resendiz placing discharge orders at this. Family/transportation remains at bedside. Instructed patient on site care and restrictions. Patient verbalized complete understanding. Family to go get a meal for the patient. Patient refused a cold sandwich at this time. Patient denies any pain or discomforts. Patient is ambulatory no distress observed. Family and/or fraud representative notified.
[2021-03-25] MEDS: clopidogrel 300 mg Tablet PO (20:10)
[2021-03-25] MEDS: atorvastatin 40 mg Tablet PO (20:11)
[2021-03-25 20:30] LABS: Troponin 5 6HR Delta 138.7 ng/L (0-12)
[2021-03-25 20:31] LABS: Troponin 5 6HR 236.7 ng/L (0-10)
--- NOTE | 2021-03-25 21:28 | PC.NURSE ---
Initiated air removal from TR band at 2030 removing 2ml of air every 10-15min until this time. TR band removed. Cleaned site and covered with 2x2 and bio-occlusive dressing. No s/s of bleeding or hematoma formation observed. Patient denies pain to site. Instructed patient on site care, restrictions and possible complications to site. Patient verbalized complete understanding stating if the area swells or starts bleeding, I will come back to the ER.
--- NOTE | 2021-03-26 09:09 | PC.SOCIAL ---
discharge follow up call made. patient denies chest pain or sob. patient didn't get prescriptions picked up due to late discharge. 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 patient has understanding of new medications and directions for taking. patient follow up appointments made, patient given dates and times.
--- NOTE | 2021-03-26 20:31 | PM.DCS ---
Discharge Providers Date of Admission: 03/25/21 19:30 Date of Discharge: March 26, 2021 Attending Provider at Admission: Yuliana Resendiz MD Attending Provider at Discharge: Yuliana Resendiz MD Diagnoses at Discharge Discharge Diagnosis (1) Acute coronary syndrome: Status: Acute (2) HTN (hypertension): Status: Acute Qualifiers: Hypertension type: essential hypertension Qualified Code(s): I10 - Essential (primary) hypertension (3) Anxiety: Status: Acute Reason for Visit Reason for Visit: SHARP CHEST PAINS Hospital Course Hospital Course Patient underwent left heart cath for acute coronary syndrome. She was noted to have nonobstructive disease of proximal circumflex which was 50% to 60% stenotic. FFR was performed which was not significantly at 0.93.. Left main LAD and RCA has luminal irregularity. Left ventricle ejection fraction normal by LV gram no ballooning noted. Postprocedure patient recovered without any complication. She remains pretty adamant to go home. She understand the risk for chest pain arrhythmia stroke . Still she would like to go home. I would therefore send her home with aspirin statin beta-juliet isosorbide mononitrate and Plavix for 1 year. Most likely diagnosis stress-induced cardiomyopathy. Physical Exam Narrative: EXAM NARRATIVE: GENERAL: Patient is alert, awake and oriented x3. NECK: No jugular vein distension. HEENT: No cyanosis. No icterus. No pallor. HEART: Regular S1 and S2. No murmur, rub or gallop. LUNGS: Clear to auscultate bilaterally. ABDOMEN: Soft, nontender and nondistended. Positive bowel sounds. No guarding, rebound or tenderness. CENTRAL NERVOUS SYSTEM: Grossly nonfocal. EXTREMITIES: Lower extremities without edema bilaterally. Discharge Data Data Completed and Pending: Completed Studies During Hospitalization Category Date Time Status CT angio chest PE protcl [id number] Stat Cat Scan 03/25/21 17:06 Completed XR chest 1V vannessa ble [id number] Stat Exams 03/25/21 14:08 Completed CV. echo complete * [id number] Stat Ultrasound 03/25/21 16:10 Completed Pending at discharge Category Date Time Status ENTREPRENEURIAL FINANCE PROFESSOR request for service Urgent Exams 03/25/21 18:03 Taken Labs from last 24 hours 03/25/21 19:58 Troponin T Hi Sens 6Hr 236.7 H Troponin T Hi Sens 6Hr Delta 138.7 H* Vitals: Last Vital Signs Temp 98.9 F 03/25/21 13:34 Pulse 87 03/25/21 21:31 Resp 16 03/25/21 21:31 BP 135/86 03/25/21 21:31 Pulse Ox 100 03/25/21 21:31 Discharge Plan Discharge Patient Disposition: Home Condition: Stable Prescriptions: New atorvastatin 40 mg Tablet 40 mg PO BEDTIME Qty: 30 RF: 6 isosorbide mononitrate 30 mg Tablet Extended Release 24 Hr 30 mg PO DAILY Qty: 30 RF: 6 aspirin 81 mg Tablet,Delayed Release (Dr/Ec) 81 mg PO DAILY Qty: 90 RF: 4 clopidogrel 75 mg tablet 75 mg PO DAILY Qty: 90 RF: 4 Nitrostat 0.4 mg tablet, sublingual 0.4 mg sublingual Q5M Qty: 30 RF: 3 Continued venlafaxine 37.5 mg capsule,extended release 24hr 37.5 mg PO DAILY RF: 0 buspirone 5 mg tablet 5 mg PO TID RF: 0 hydroxyzine HCl 25 mg tablet 25 mg PO BID PRN (Reason: UNKNOWN) RF: 0 atenolol 25 mg tablet 50 mg PO BID RF: 0 clindamycin phosphate 1 % lotion 1 applic topical BID Qty: 60 RF: 3 Drysol Dab-O-Matic 20 % solution See Rx Instructions .ROUTE .COMPLEX RF: 0 baclofen 10 mg tablet 5 mg PO TID RF: 0 medroxyprogesterone 150 mg/mL syringe See Rx Instructions .ROUTE .COMPLEX RF: 0 Discharge Orders: Discharge Order (Routine); Ordered 03/25/21 Ordered By: Yuliana Resendiz Referrals: Yuliana Resendiz MD [Physician] - 04/27/21 2:[address] FNP [Nurse Practitioner] - 04/02/21 9:30 am Discharge Diet: Cardiac Discharge Activity: Increase activity as tolerated Patient Instructions: Opioid Safety Activity Restrictions/Additional Instructions: Follow-up with Daniella St cardiology nurse practitioner in 7 days. Follow-up with Dr. Resendiz in 4 weeks. If you notice worsening of chest pain along with shortness of breath or just chest pain please call Dr. Resendiz's office at [phone] or go to emergency room. [facility] with call you tomorrow with these appointments. If you have not heard from them by 03/29/21, please give there office a call to schedule these appointments at [phone]. Discharge Attestations Time Spent in Discharge Care*: less than 30 min Specific Discharge Activities: educating patient and educating and/or supporting family/caregiver Quality Metrics Clinical Quality Measures During this hospital stay, did patient experience: AMI Clinical Trial Participant: No Contraindication to aspirin (AMI): Aspirin given Contraindication to statin: Statin prescribed Contraindication to PCI: Intervention not indicated Coding Level of Care Code Acute [facility] [place] note Diagnoses Acute coronary syndrome I24.9 HTN (hypertension) I10 Hypertension type: essential hypertension Anxiety F41.9
== END 2021-03-25 21:45 | disposition home or self-care (01) ==
LOC: ER 14:08 → CCL 18:14 → CSU 19:31
PROVIDERS: Admitting Provider Internal Medicine Cardiovascular Disease; Emergency Provider Emergency Medicine; Visit Provider Internal Medicine Cardiovascular Disease
DX: I24.9 Acute ischemic heart disease, unspecified (principal); I10 Essential (primary) hypertension; F41.9 Anxiety disorder, unspecified; F17.210 Nicotine dependence, cigarettes, uncomplicated; Z82.49 Family history of ischemic heart disease and other diseases of the circulatory system; Z79.82 Long term (current) use of aspirin
CPT/HCPCS: 36415; 71045; 71275; 80053; 83690; 83880; 84484; 85025; 85347; 85730; 93005; 93306; 93452; 93571; 96361; 96365; 96375; 99285; C1769; C1887; C1894; G0378; J0153; J1644; J1885; J2250; J3010; J3490; J7030; Q9967

== ENCOUNTER 2021-03-26 07:51 | Outpatient (CLI) | payer OTHER, SELFPAY ==
--- NOTE | 2021-03-26 08:18 | XR_ITS ---
WS: [id number] SACRUM TECHNIQUE: 3 views of the sacrum and coccyx CLINICAL INFORMATION: INJURY OF LOWER BACK COMPARISON: None. FINDINGS: Sacrum appears normal. Normal pubic rami. Normal lower lumbar spine and sacrum and coccyx. XR/XR sacrum coccyx min 2V [id number] IMPRESSION: Normal sacrum and coccyx.
--- NOTE | 2021-03-26 08:18 | XR_ITS ---
WS: [id number] LUMBAR SPINE TECHNIQUE: 3 views of the lumbar spine CLINICAL INFORMATION: LOW BACK PAIN COMPARISON: None. FINDINGS: Five miy-ork-ddnhowj lumbar vertebral bodies. Disc space heights are well preserved. No compression f ractures. No visualized pars defects. No spondylolisthesis. Visualized sacroiliac joints are normal. Normal visualized soft tissues. Partially visualized bowel gas pattern is normal. XR/XR lumbar spine 2-3V* [id number] IMPRESSION: Normal lumbar spine.
--- NOTE | 2021-03-26 08:18 | XR_ITS ---
WS: [id number] CERVICAL SPINE TECHNIQUE: 3 views of the cervical spine CLINICAL INFORMATION: MALIGNANT NEOPLASM OF CERVIX COMPARISON: None. FINDINGS: Straightening of the normal cervical lordosis. Normal C1-2 articulation. Normal prevertebral soft tis sues. Normal dens. No acute fractures. XR/XR cervical spine 3V* [id number] IMPRESSION: Normal cervical spine
== END 2021-03-26 07:52 | disposition home or self-care (01) ==
PROVIDERS: Visit Provider Nurse Practitioner Family
DX: C53.9 Malignant neoplasm of cervix uteri, unspecified (principal); M54.5 Low back pain; S39.92XA Unspecified injury of lower back, initial encounter; X58.XXXA Exposure to other specified factors, initial encounter
CPT/HCPCS: 72040; 72100; 72220

== ENCOUNTER → 2021-04-02 10:25 | Outpatient (BNVA) | payer OTHER, SELFPAY | PROVIDERS: PCP Nurse Practitioner Family; Visit Provider Nurse Practitioner Family | DX: I24.9 Acute ischemic heart disease, unspecified (principal); Z09 Encounter for follow-up examination after completed treatment for conditions other than malignant neoplasm; I10 Essential (primary) hypertension | CPT/HCPCS: 80048 ==

== ENCOUNTER 2021-04-15 17:04 | Emergency (ER) | payer OTHER, SELFPAY ==
[2021-04-15] VITALS (11 sets, daily range): BP systolic 120–188; BP diastolic 73–104; PULSE 79–89; RESP 16–35; TEMP 36.8; O2SAT 93–98
--- NOTE | 2021-04-15 17:27 | XRR_ITS ---
PROCEDURE INFORMATION: Exam: XR Chest Exam date and time: 04/15/2021 5:27 PM Age: 30 years old Clinical indication: Sternal or substernal pain; Additional info: Chest pain TECHNIQUE: Imaging protocol: XR of the chest. Views: 1 view. COMPARISON: CR XR chest 1V portable [id number] 03/25/2021 2:14 PM FINDINGS: Lungs: Unremarkable. No consolidation. Pleural spaces: Unremarkable. No pleural effusion. No pneumothorax. Heart/Mediastinum: Unremarkable. No cardiomegaly. Bones/joints: Unremarkable. XR/XR chest 1V portable [id number] IMPRESSION: No acute findings. Radiation Dose CTDIVOL = (mGy): DLP = (mGy-cm)
--- NOTE | 2021-04-15 17:28 | ECG_ITS ---
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 Measurements Intervals [place] Rate: 84 P: 27 WV: 144 QRS: 26 QRSD: 89 T: -16 QT: 359 QTc: 425 Interpretive Statements SINUS RHYTHM NONSPECIFIC T-WAVE ABNORMALITY Compared to ECG 03/25/2021 15:23:20 T-wave abnormality now present ST (T wave) deviation no longer present Electronically Signed On 04-16-2021 9:36:42 CDT by Pepper Hand M.D. [id number]
[2021-04-15 17:51] LABS: Basophils # 0.1 10^3/uL (0.0-0.1); Basophils % 0.6 %; Eosinophils # 0.3 10^3/uL (0.0-0.8); Eosinophils % 2.2 %; Hematocrit 44.9 % (37.0-47.0); Hemoglobin 15.9 g/dL (11.5-15.3); Lymphocytes # 2.4 10^3/uL (0.8-4.8); Lymphocytes % 20.2 %; Mean Corpuscular HGB Conc 35.4 g/dL (30.0-36.0); Mean Corpuscular Hemoglobin 31.8 pg (28.0-34.0); Mean Corpuscular Volume 89.8 fl (81-99); Mean Platelet Volume 10.4 fL (7.4-10.4); Monocytes # 0.6 10^3/uL (0.2-0.9); Monocytes % 5.2 %; Neutrophils % 71.6 %; Nucleated Red Blood Cells % 0 %; Platelet Count 379 10^3/cmm (130-400); Red Cell Distribution Width 11.5 % (12.1-15.1)
[2021-04-15 18:08] LABS: Anion Gap 16.5 (5-19); Blood Urea Nitrogen 10 mg/dL (6-20); Calcium 9.5 mg/dL (8.5-10.5); Carbon Dioxide 22 mmol/L (22-29); Chloride 102 mmol/L (98-107); Glucose 110 mg/dL (65-115); Osmolality Calculated 284 mOsm/kg (285-295); Potassium 3.5 mmol/L (3.5-5.1); Sodium 137 mmol/L (136-145)
[2021-04-15 18:11] LABS: Troponin(5th) Baseline 6 ng/L (0-10)
[2021-04-15 18:29] LABS: D Dimer <= 0.27 ug/mIFEU (0-0.59)
--- NOTE | 2021-04-15 19:28 | ECG_ITS ---
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 Measurements Intervals [place] Rate: 78 P: 40 NH: 175 QRS: 40 QRSD: 89 T: -22 QT: 382 QTc: 437 Interpretive Statements SINUS RHYTHM NONSPECIFIC T-WAVE ABNORMALITY Compared to ECG 04/15/2021 17:19:52 No significant changes Electronically Signed On 04-16-2021 9:41:42 CDT by Pepper Hand M.D. [id number]
[2021-04-15] MEDS: aspirin 325 mg Tablet PO (19:42)
--- NOTE | 2021-04-15 19:44 | W.ED.GENADLT ---
HPI - General Adult General: Chief complaint: Chest Pain Stated complaint: CP Time Seen by Provider: 04/15/21 17:26 History of Present Illness: HPI narrative: CC: Chest Pain HPI: This is a [30] yo patient hx of smoking, depo provera presenting to the ED w/ acute onset intermittent substernal chest pressure x 3 days now worsening today. Patient reports the pain is pretty significant today and took 3 tablets of nitroglycerin moderate improvement in symptoms. EMS alerted EMS and was brought into the ED. Denies any recent sympathomimetic drug use. Patient denies any cough, fever/chill, or sore throat. Of note, patient is followed by Dr. Resendiz and seen on 03/24 2021 for concerns of acute ST elevation HI. Patient underwent a cardiac cath study which showed RCA and mid LAD luminal irregularities with 50 to 60% stenosis of the proximal circumflex.patient has an appointment with Dr. Renae on 04/27/2021 for evaluation of chest pain. Denies palpitations, syncope symptoms. Pain not positional. Denies unilateral leg swelling, or prior PE. Patient denies any orthopnea, paroxysmal nocturnal dyspnea, weight gain, or increased leg swellings. Onset: 3 days ago Duration: ongoing for the last 3 days Location: home Severity: moderate Review of Systems Narrative: Constitutional: No fever, no chills. HEENT: No vision changes, no sore throat. CV: +chest pain, no palpitations. PULM: No cough, no dyspnea. GI: No abdominal pain, no N/V/D. : No dysuria, no frequency, no hematuria. MSKEL: No arthralgias, no edema. SKIN: No new rashes, no lesions. NEURO: No headache, no focal weakness. HEME: No easy bleeding or bruising. PSYCH: No change in mood or affect. PFS ED PFSH: Medical History Anxiety HTN (hypertension) Social History History of recent travel: No Physical Exam Narrative: EXAM NARRATIVE: Head: Atraumatic, normocephalic Eyes: PERRL, EOMI, conjunctiva without injection ENT: Throat without erythema, lesions or exudate, MMM NECK: Supple, trachea midline, no JVD LUNGS: LCTA CV: RRR, S1,S2, no murmurs, rubs, gallops. 2+ peripheral pulses in UEs ABDOMEN: Soft, nontender, nondistended, BS x4, no rigidity, no guarding, no rebound EXTREMITY: Normal ROM, no pitting edema, no calf tenderness to palpation SKIN: No rash or erythema NEURO: Awake and alert. No focal motor deficits. PSYCH: Normal mood and affect. Course Vital Signs: Vital signs: Vital Signs Temperature 98.3 F 04/15/21 20:06 Pulse Rate 79 04/15/21 20:06 Respiratory Rate 16 04/15/21 20:06 Blood Pressure 120/73 04/15/21 20:06 Pulse Oximetry 98 04/15/21 20:06 MDM - General Adult MDM Narrative: Medical decision making narrative: [30]yo patient w/ hx of 50-60% stenosis of the L circum presenting to the ED With acute substernal chest pain X 3 days now worsening today. Currently mild chest pain 2/10. Given History And Exam today I have some concern for ACS/UA/NSTEMI. Today, I have NO suspicion for pneumothorax, pneumonia, tamponade, aortic dissection or other emergent problem as a cause for this presentation. ECG did not show any signs of acute STEMI. Patient had recent procedure, is on depo, lower suspicion for PE - will evaluate with dimer EKG showing regular sinus rhythm at HT of [78]. Normal axis. No ST elevations/depressions to suggest coronary occlusion. Normal HI, QRS, QT intervals. Workup: ECG, CXR, CBC, BMP, Troponin x 2, dimer Intervention: ASA 325mg, SL nitroglycerin Findings: ECG: New TWI in III/aVF compared to 03/25. No evidence of Brugada?s sign, delta wave, epsilon wave, significantly prolonged QTc, or malignant arrhythmia. No Q waves. Troponin: Negative x 12 Other Labs unremarkable for emergent problems. CXR: Without PTX, PNA, or widened mediastinum Dimer negative [7:55pm] On reassessment, troponins x 2 negative. Patient is noted to have no new T wave inversions III and aVF compared to prior EKG. I have discussed case with Dr. Hand who recommended uptitrating her blood pressure medicine and close follow-up with Dr. Smith since patient is currently chest pain free and troponin x2 wnl. Patient has had and a cath report from 03/26 showing 60% stenosis of the circumflex. I performed a decision-making with patient regarding admission versus discharge and patient prefers to be discharged. I have explained to patient that the risk of leaving today include that patient may still have had an early heart attack, and may experience dysrhythmia and possible if she leaves today given her history of circumflex stenosis and luminal irregularities. Patient verbalized that she understands every aspect of discussion today and continues to choose the alternative option today of close outpatient follow-up with Dr. Resendiz in the next few days. Patient aware that if she has any chest pain in the next few hours to come back to the emergency room immediately. I have given patient follow up with our family independence case manager to be seen by Dr. Resendiz given persistent chest pain despite negative workup. Patient aware of a call from our family independence case manager to schedule for appointment(s) and verbalizes understanding of the importance of following up. Patient is instructed to take 1 and half tablet of atenolol should she have any elevated blood pressure. Disposition: Discharge. Patient counseled regarding diagnostic impression, treatment plan. Patient given ED strict return precautions to return for continuation, worsening, or development of new symptoms. Instructed to f/u w/ her Vp Of Global Marketing in the next few days regarding symptoms today. Patient verbalized understanding. Lab Data: Labs: Lab Results 04/15/21 04/15/21 04/15/21 17:21 17:21 17: WBC 12.0 10^3/uL H 10 ^3/uL (4.0-10.0) RBC 5.00 10^6/uL 10^6 /uL (4.1-5.3) Hgb 15.9 g/dL H g/dL (11.5-15.3) Hct 44.9 % % (37.0-47.0) MCV 89.8 fl fl (81-99) MCH 31.8 pg pg (28.0-34.0) MCHC 35.4 g/dL g/dL (30.0-36.0) RDW 11.5 % L % (12.1-15.1) Plt Count 379 10^3/cmm 10^3 /cmm (130-400) MPV 10.4 fL fL (7.4-10.4) Neut % (Auto) 71.6 % % Lymph % (Auto) 20.2 % % [place] % (Auto) 5.2 % % Eos % (Auto) 2.2 % % Baso % (Auto) 0.6 % % Neut # (Auto) 8.60 10^3/uL H 10 ^3/uL (1.8-7.7) Lymph # (Auto) 2.4 10^3/uL 10^3/ uL (0.8-4.8) [place] # (Auto) 0.6 10^3/uL 10^3/ uL (0.2-0.9) Eos # (Auto) 0.3 10^3/uL 10^3/ uL (0.0-0.8) Baso # (Auto) 0.1 10^3/uL 10^3/ uL (0.0-0.1) Nucleated RBC % (a uto) 0 % % Nucleated RBCs # 0.0 /100WBC /100W BC D-Dimer Sodium 137 mmol/L mmol/L (136-145) Potassium 3.5 mmol/L mmol/L (3.5-5.1) Chloride 102 mmol/L mmol/L (98-107) Carbon Dioxide 22 mmol/L mmol/L (22-29) Anion Gap 16.5 (5-19) BUN 10 mg/dL mg/dL (6-20) Creatinine 0.7 mg/dL mg/dL (0.5-0.9) GFR Calculation 97.0 mL/min mL/mi n (90-130) Glucose 110 mg/dL mg/dL (65-115) Calculated Osmolal ity 284 mOsm/kg L mOs m/kg (285-295) Calcium 9.5 mg/dL mg/dL (8.5-10.5) Troponin T Baselin e 6 ng/L ng/L (0-10) Troponin T 120 Min belkofski Delta Troponin T 04/15/21 04/15/21 17:21 19:21 WBC RBC Hgb Hct MCV MCH MCHC RDW Plt Count MPV Neut % (Auto) Lymph % (Auto) [place] % (Auto) Eos % (Auto) Baso % (Auto) Neut # (Auto) Lymph # (Auto) [place] # (Auto) Eos # (Auto) Baso # (Auto) Nucleated RBC % (a uto) Nucleated RBCs # D-Dimer <= 0.27 ug/mIFEU ug/mIFEU (0-0.59) Sodium Potassium Chloride Carbon Dioxide Anion Gap BUN Creatinine GFR Calculation Glucose Calculated Osmolal ity Calcium Troponin T Baselin e Troponin T 120 Min belkofski 6.00 ng/L ng/L (0-10) Delta Troponin T 0 ABS# ABS# (0-10) Imaging Data^: Other Imaging: Radiologist's impression: [employer] [address]NAcm ReportSigned Patient: Faby Connolly #: [id number]: 1990Acct#:[id number]/Sex: 30 / FADM Date: 04/15/21Loc: ERRoom/Bed:Attending Dr: Ordering Provider/Ordering MD: Arielle Lozada MD Date of Service: 04/15/21 Procedure(s): XR chest 1V portable [id number] Accession Number(s): [id number] Report Number: [id number] PROCEDURE INFORMATION: Exam: XR Chest Exam date and time: 04/15/2021 5:27 PM Age: 30 years old Clinical indication: Sternal or substernal pain; Additional info: Chest pain TECHNIQUE: Imaging protocol: XR of the chest. Views: 1 view. COMPARISON: CR XR chest 1V portable [id number] 03/25/2021 2:14 PM FINDINGS: Lungs: Unremarkable. No consolidation. Pleural spaces: Unremarkable. No pleural effusion. No pneumothorax. Heart/Mediastinum: Unremarkable. No cardiomegaly. Bones/joints: Unremarkable. XR/XR chest 1V portable [id number] IMPRESSION: No acute findings. Radiation Dose CTDIVOL = (mGy): DLP = (mGy-cm) Dictated By:Harriett Goldberg By:Harriett Goldberg Date/Time:04/15/211828DD/ 26 Discharge Plan Discharge Patient Disposition: Home Clinical Impression: Chest pain Condition: Stable Prescriptions: No Action venlafaxine 37.5 mg capsule,extended release 24hr 37.5 mg PO DAILY RF: 0 hydroxyzine HCl 25 mg tablet 25 mg PO BID PRN (Reason: UNKNOWN) RF: 0 atenolol 25 mg tablet 50 mg PO BID RF: 0 clindamycin phosphate 1 % lotion 1 applic topical BID Qty: 60 RF: 3 buspirone 5 mg tablet 10 mg PO TID RF: 0 Drysol Dab-O-Matic 20 % solution See Rx Instructions .ROUTE .COMPLEX RF: 0 baclofen 10 mg tablet 5 mg PO TID RF: 0 medroxyprogesterone 150 mg/mL syringe See Rx Instructions .ROUTE .COMPLEX RF: 0 atorvastatin 40 mg Tablet 40 mg PO BEDTIME Qty: 30 RF: 6 isosorbide mononitrate 30 mg Tablet Extended Release 24 Hr 30 mg PO DAILY Qty: 30 RF: 6 aspirin 81 mg Tablet,Delayed Release (Dr/Ec) 81 mg PO DAILY Qty: 90 RF: 4 clopidogrel 75 mg tablet 75 mg PO DAILY Qty: 90 RF: 4 Nitrostat 0.4 mg tablet, sublingual 0.4 mg sublingual Q5M Qty: 30 RF: 3 Discharge Orders: Discharge ED (Routine); Ordered 04/15/21 Ordered By: Arielle Lozada Referrals: Chad,Анна, RN MANAGED CARE [Primary Care Provider] - Discharge Diet: Advance as tolerated Discharge Activity: Resume usual activity Patient Instructions: Chest Pain (ED) Activity Restrictions/Additional Instructions: Please come back to the emergency room if the chest pain worsens, if any fever or chills, worsening shortness of breath, focal weakness, exertional fatigue, or any new concerning complaints. You can take more of your atenolol 25mg (1.5 tablet) if you notice your blood pressure is high. Our family independence case manager will have you follow-up with Dr. Resendiz in the next few days. You would be expected to have a phone call with our family independence case manager who will put you on the schedule. Coding Level of Care Code ED Manager Cardiac for Gautam Lin
[2021-04-15 19:49] LABS: Troponin 5 2HR Delta 0 ABS# (0-10)
--- NOTE | 2021-04-19 14:04 | DCPLANNER ---
supply chain project manager had message to schedule a follow up appointment for patient with heart care. supply chain project manager called heart care, spoke with Adia, gave clinic patients information. Patient has an appointment scheduled for Tuesday, April 27, [address] Resendiz. Patient is aware of appointment.
--- NOTE | 2021-04-30 12:41 | DCPLANNER ---
Patient had an appointment scheduled for 04.27.21 with [facility] - patient did attend appointment.
== END 2021-04-15 20:10 | disposition home or self-care (01) ==
PROVIDERS: Emergency Provider Emergency Medicine; PCP Nurse Practitioner Family
DX: R07.9 Chest pain, unspecified (principal); Z79.82 Long term (current) use of aspirin; Z79.02 Long term (current) use of antithrombotics/antiplatelets; I10 Essential (primary) hypertension
CPT/HCPCS: 71045; 80048; 84484; 85025; 85378; 93005; 99283

== ENCOUNTER → 2021-06-21 13:51 | Outpatient (BNVA) | payer OTHER, SELFPAY | PROVIDERS: PCP Nurse Practitioner Family; Visit Provider Registered Nurse Neonatal Intensive Care | DX: Z20.822 Contact with and (suspected) exposure to COVID-19 (principal) | CPT/HCPCS: 87635 ==

== ENCOUNTER 2021-07-05 20:00 | Outpatient (CLI) | payer OTHER, SELFPAY | END 2021-07-05 20:01 | disposition home or self-care (01) | LOC: SLEEP 07-06 07:39 | PROVIDERS: PCP Nurse Practitioner Family; Visit Provider Nurse Practitioner Family | DX: R06.83 Snoring (principal); R53.83 Other fatigue | CPT/HCPCS: 95810 ==

== ENCOUNTER 2022-05-11 17:58 | Emergency (ER) | payer OTHER, SELFPAY ==
[2022-05-11 18:14] VITALS: BP 132/78; PULSE 81; RESP 16; TEMP 37; O2SAT 98; BMI 38.9
--- NOTE | 2022-05-11 18:22 | ECG_ITS ---
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 Measurements Intervals [place] Rate: 80 P: 35 OH: 178 QRS: 42 QRSD: 94 T: 32 QT: 386 QTc: 448 Interpretive Statements SINUS RHYTHM Compared to ECG 04/15/2021 19:38:41 T-wave abnormality no longer present Electronically Signed On 05-11-2022 19:24:20 CDT by Pepper Hand M.D. [id number]
--- NOTE | 2022-05-11 18:30 | XRR_ITS ---
PROCEDURE INFORMATION: Exam: XR Chest Exam date and time: 05/11/2022 6:52 PM Age: 31 years old Clinical indication: Pain; Shortness of breath and other: Numbness and swelling down left arm; Chest pressure; Additional info: Cp TECHNIQUE: Imaging protocol: Radiologic exam of the chest. Views: 1 view. COMPARISON: CR (CHEST, ) 04/15/2021 5:46 PM FINDINGS: Lungs: Unremarkable. No consolidation. Pleural spaces: Unremarkable. No pleural effusion. No pneumothorax. Heart/Mediastinum: Unremarkable. No cardiomegaly. Bones/joints: Unremarkable. XR/XR chest 1V portable [id number] IMPRESSION: No acute findings.
[2022-05-11 19:24] VITALS: BP 129/64; PULSE 73; RESP 21; O2SAT 96
[2022-05-11 19:25] LABS: Basophils # 0.1 10^3/uL (0.0-0.1); Basophils % 0.6 %; Eosinophils # 0.3 10^3/uL (0.0-0.8); Eosinophils % 2.4 %; Hematocrit 45.8 % (37.0-47.0); Hemoglobin 16.1 g/dL (11.5-15.3); Lymphocytes # 2.5 10^3/uL (0.8-4.8); Lymphocytes % 18.3 %; Mean Corpuscular HGB Conc 35.2 g/dL (30.0-36.0); Mean Corpuscular Hemoglobin 31.8 pg (28.0-34.0); Mean Corpuscular Volume 90.3 fl (81-99); Mean Platelet Volume 10.3 fL (7.4-10.4); Monocytes # 1.1 10^3/uL (0.2-0.9); Monocytes % 8.2 %; Neutrophils # 9.52 10^3/uL (1.8-7.7); Neutrophils % 70.1 %; Nucleated Red Blood Cells % 0 %; Platelet Count 359 10^3/cmm (130-400); Red Blood Count 5.07 10^6/uL (4.1-5.3); Red Cell Distribution Width 11.5 % (12.1-15.1); White Blood Count 13.6 10^3/uL (4.0-10.0)
[2022-05-11 19:30] VITALS: BP 113/87; PULSE 75; RESP 20; O2SAT 97
--- NOTE | 2022-05-11 19:36 | W.ED.CHESTPA ---
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 Denies any shortness of breath or nausea. Associated symptoms: Deny abdominal pain, dyspnea, fever(s), nausea or vomiting Review of Systems Const: Denies: fever(s), chills, body aches or change in appetite Eyes: Denies: blurry vision or eye discomfort ENMT: Denies: throat pain or dental pain Card: Denies: chest pain Resp: Denies: dyspnea GI: Denies: abdominal pain, nausea, vomiting or diarrhea : Denies: dysuria Musc: Denies: neck pain or back pain Skin/Breast: Denies: rash Neuro: Denies: headache(s) Psych: Denies: depression Asif/Lymph: Denies: easy bruising All/Imm: Denies: urticaria PFSH ED PFSH: Medical History Anxiety Depression Hidradenitis suppurativa HTN (hypertension) Surgical History History of breast augmentation Social History Smoking and tobacco status: current every day smoker History of recent travel: No Physical Exam Const: COMMON NORMALS: no acute distress, patient oriented x3 and healthy appearing HENMT: COMMON NORMALS: normocephalic and atraumatic HEAD & SCALP: normocephalic and atraumatic Eye: COMMON NORMALS: Equal, round and reactive pupils present and EOMs intact bilaterally PUPIL: Yes Equal, round and reactive pupils present Neck/C-Spine: COMMON NORMALS: full ROM and supple Chest: COMMONS NORMALS: normal inspection of the chest and normal palpation of entire chest wall Resp: COMMON NORMALS: normal respiratory effort, No retractions, No use of accessory muscles and clear to auscultation bilaterally AUSCULTATION: clear to auscultation bilaterally Cardio: COMMON NORMALS: regular rate, regular rhythm and No murmurs present (Cardio) RATE: regular rate RHYTHM: regular rhythm GI: COMMON NORMALS: Normal to inspection, nondistended, normoactive bowel sounds present, Soft to palpation, non-tender and no masses PALPATION: Yes Soft to palpation Extremity: COMMON NORMALS: normal to inspection and full ROM Neuro: COMMON NORMALS: patient oriented x3, moves all extremities and no focal motor deficits Psych: COMMON NORMALS: mental status grossly normal, Normal thought process present and cooperative THOUGHT PROCESS: Normal thought process present Skin: COMMON NORMALS: no rashes or lesions noted and no wounds GENERAL SKIN EXAM: no rashes or lesions noted Course Vital Signs: Vital signs: Vital Signs Temperature 98.6 F 05/11/22 18:14 Pulse Rate 75 05/11/22 19:30 Respiratory Rate 20 H 05/11/22 19:30 Blood Pressure 113/87 05/11/22 19:30 Pulse Oximetry 97 05/11/22 19:30 Oxygen Delivery Me thod 05/11/22 19:24 MDM - Chest Pain Medical Decision Making Patient presents for chest pain with atypical nature she been pain-free here her troponin is normal she has appointment cardiology tomorrow she is stable for discharge she is to follow PCP and return if worsening. Lab Data : 05/11/22 18:46 05/11/22 18:46 Radiology Impressions Chest X-Ray 05/11/22 18:30 IMPRESSION: No acute findings. Laboratory Results WBC 13.6 10^3/uL (4.0-10.0) H 05/11/22 18:46 RBC 5.07 10^6/uL (4.1-5.3) 05/11/22 18:46 Hgb 16.1 g/dL (11.5-15.3) H 05/11/22 18:46 Hct 45.8 % (37.0-47.0) 05/11/22 18:46 MCV 90.3 fl (81-99) 05/11/22 18:46 MCH 31.8 pg (28.0-34.0) 05/11/22 18:46 MCHC 35.2 g/dL (30.0-36.0) 05/11/22 18:46 RDW 11.5 % (12.1-15.1) L 05/11/22 18:46 Plt Count 359 10^3/cmm (130-400) 05/11/22 18:46 MPV 10.3 fL (7.4-10.4) 05/11/22 18:46 Neut % (Auto) 70.1 % 05/11/22 18:46 Lymph % (Auto) 18.3 % 05/11/22 18:46 [place] % (Auto) 8.2 % 05/11/22 18:46 Eos % (Auto) 2.4 % 05/11/22 18:46 Baso % (Auto) 0.6 % 05/11/22 18:46 Neut # (Auto) 9.52 10^3/uL (1.8-7.7) H 05/11/22 18:46 Lymph # (Auto) 2.5 10^3/uL (0.8-4.8) 05/11/22 18:46 [place] # (Auto) 1.1 10^3/uL (0.2-0.9) H 05/11/22 18:46 Eos # (Auto) 0.3 10^3/uL (0.0-0.8) 05/11/22 18:46 Baso # (Auto) 0.1 10^3/uL (0.0-0.1) 05/11/22 18:46 Nucleated RBC % (auto) 0 % 05/11/22 18:46 Nucleated RBCs # 0.0 /100WBC 05/11/22 18:46 Sodium 139 mmol/L (136-145) 05/11/22 18:46 Potassium 3.8 mmol/L (3.5-5.1) 05/11/22 18:46 Chloride 104 mmol/L (98-107) 05/11/22 18:46 Carbon Dioxide 22 mmol/L (22-29) 05/11/22 18:46 Anion Gap 16.8 (5-19) 05/11/22 18:46 BUN 13 mg/dL (6-20) 05/11/22 18:46 Creatinine 0.8 mg/dL (0.5-0.9) 05/11/22 18:46 GFR Calculation 82.6 mL/min (90-130) L 05/11/22 18:46 Glucose 65 mg/dL (65-115) 05/11/22 18:46 Calculated Osmolality 286 mOsm/kg (285-295) 05/11/22 18:46 Calcium 9.8 mg/dL (8.5-10.5) 05/11/22 18:46 Total Bilirubin 0.3 mg/dL (0.15-1.2) 05/11/22 18:46 AST 18 U/L (0-32) 05/11/22 18:46 ALT 23 U/L (0-33) 05/11/22 18:46 Alkaline Phosphatase 82 U/L (35-105) 05/11/22 18:46 Troponin T Baseline 6 ng/L (0-10) 05/11/22 18:46 Total Protein 7.0 g/dL (6.6-8.7) 05/11/22 18:46 Albumin 4.6 g/dL (3.5-5.2) 05/11/22 18:46 Globulin 2.4 g/dL (1.3-4.6) 05/11/22 18:46 EKG Data EKG 1: I personally reviewed and interpreted this EKG as follows: EKG interpretation date: 05/11/22 EKG interpretation time: 18:22 Interpretation: nsr hr [address] or t wave abnormalities qrs 94 qtc 422 Discharge Plan Discharge Patient Disposition: Home Clinical Impression: Chest pain Qualifiers: Chest pain type: unspecified Qualified Code(s): R07.9 - Chest pain, unspecified Condition: Stable Prescriptions: No Action hydroxyzine HCl 25 mg tablet 25 mg PO BID atenolol 25 mg tablet 50 mg PO BID Trintellix 10 mg tablet 10 mg PO DAILY trazodone 50 mg tablet 50 - 100 mg PO BEDTIME gabapentin 100 mg capsule 100 mg PO BID isosorbide mononitrate 30 mg tablet extended release 24 hr 30 mg PO DAILY Qty: 90 2RF spironolactone 50 mg tablet 50 mg PO DAILY Qty: 30 4RF clopidogrel 75 mg tablet 75 mg PO DAILY Qty: 90 2RF aspirin 81 mg Tablet,Delayed Release (Dr/Ec) 81 mg PO DAILY Qty: 90 4RF nitroglycerin [Nitrostat] 0.4 mg tablet, sublingual 0.4 mg sublingual Q5M Qty: 30 3RF Rx Instructions: do not exceed 3 doses per episode atorvastatin 40 mg tablet 40 mg PO BEDTIME Discharge Orders: Discharge ED (Routine); Ordered 05/11/22 Ordered By: Azul Dong Referrals: Анна Bonilla FNP [Primary Care Provider] - Discharge Diet: Advance as tolerated Discharge Activity: Resume usual activity Patient Instructions: Chest Pain (ED) Coding Level of Care Code ED Manufacturing Specialist for Gautam Fwd Exam Comprehensive
[2022-05-11 19:59] LABS: Troponin(5th) Baseline 6 ng/L (0-10)
[2022-05-11 20:01] LABS: Alanine Aminotransferase 23 U/L (0-33); Albumin Level 4.6 g/dL (3.5-5.2); Alkaline Phosphatase 82 U/L (35-105); Anion Gap 16.8 (5-19); Aspartate Amino Transferase 18 U/L (0-32); Blood Urea Nitrogen 13 mg/dL (6-20); Calcium 9.8 mg/dL (8.5-10.5); Carbon Dioxide 22 mmol/L (22-29); Chloride 104 mmol/L (98-107); Globulin 2.4 g/dL (1.3-4.6); Glomerular Filtration Rate 82.6 mL/min (90-130); Glucose 65 mg/dL (65-115); Osmolality Calculated 286 mOsm/kg (285-295); Potassium 3.8 mmol/L (3.5-5.1); Sodium 139 mmol/L (136-145); Total Bilirubin 0.3 mg/dL (0.15-1.2)
== END 2022-05-11 20:31 | disposition home or self-care (01) ==
PROVIDERS: Emergency Provider Emergency Medicine; PCP Nurse Practitioner Family
DX: R07.9 Chest pain, unspecified (principal); Z79.82 Long term (current) use of aspirin; Z79.02 Long term (current) use of antithrombotics/antiplatelets; I10 Essential (primary) hypertension; F17.210 Nicotine dependence, cigarettes, uncomplicated
CPT/HCPCS: 36415; 71045; 80053; 84484; 85025; 93005; 99285

== ENCOUNTER 2022-06-09 09:03 | Outpatient (CLI) | payer OTHER, SELFPAY ==
--- NOTE | 2022-06-09 09:20 | ECG_ITS ---
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 Interpretive Statements NAME OF STUDY: LEXISCAN SESTAMIBI STRESS TEST INDICATION: [Chest Pain, ] Procedure: At the baseline, the blood pressure was 113/86 mmHg with a heart rate of 78 bpm. The electrocardiogram showed normal sinus rhythm, normal axis with normal ST and T's. The Lexiscan was infused over a period of 20 seconds. A total of 0.4 mg of Lexiscan was infused. The stress phase was continued for a total of 5 minutes. Heart rate was at the end of stress phase was 89 bpm and a blood pressure of 113/63 mmHg. The EKG at the peak infusion revealed normal sinus rhythm with no significant ST-T wave changes. Sestamibi was injected 20 seconds after the Lexiscan infusion. Blood pressure at the end of recovery phase was 132/81 mmHg with a heart rate of 100 bpm. Conclusion: 1. Normal EKG response to Lexiscan infusion 2. No Lexiscan induced chest pain or cardiac arrhythmia. 3. Normal blood pressure and heart rate response. 4. Sestamibi/sestamibi perfusion scan pending; see separate report. Electronically Signed On 06-12-2022 20:03:49 TRANSITIONS RN CARE COORDINATOR by Klaus Peacock M.D. [email or web address].[email or web address]/store/[id number]
--- NOTE | 2022-06-09 09:20 | NMCV_ITS ---
NM halina perf SPECT r/s* [id number] Faby Connolly Age: 31 Gender: F : 1990 Exam Date: 06/09/2022 10:40 Ordering Phys: Pepper Hand MD ([email or web address]) Technologist: YEE Cohen Exam Location: [facility] Indications: CHEST PAIN STRESS TEST Please see separate stress test report in [facility] for full findings IMAGE PROTOCOL Rest/Stress 1 Lexiscan Day Radiopharmaceutical Dose (mCi) Administration Site Administered by Rest: Tc-99m 9.4 IV YEE De Sestamibi Stress:Tc-99m 32.3 IV YEE De Sestamibi Rest: 09-Jun-2022 60 Discovery 630 Stress: 09-Jun-2022 15 Discovery 630 0.4mg Lexiscan. Images obtained in supine and prone position. SPECT RESULTS Technical Quality: Excellent Raw Data Analysis: Normal, Breast Implants Image Corrections: No attenuation or motion correction applied Summed Stress Score: 0 Summed Rest Score: 0 Summed Difference Score: 0 PERFUSION FINDINGS Small sized perfusion abnormality of moderate severity of apical anterior and apical septal lorenzo on stress images. FUNCTIONAL RESULTS (calculated via Gated SPECT) Stress Image LV EF (%): 87 Stress EDV (mL):68 TID: 0.67 Stress ESV (mL):9 FUNCTIONAL FINDINGS: The left ventricle is normal in size. Transient Ischemia Dilatation of 0.67. There is hyperdynamic left ventricular global systolic function. The left ventricular ejection fraction is hyperdynamic with a value of 87%. There is hyperdynamic left ventricular wall thickening. IMPRESSIONS 1. Small sized reversible perfusion abnormality of moderate severity of apical anterior and apical septal lorenzo. 2. This may represent small area of ischemia in left anterior descending artery territory. 3. Overall left ventricular systolic function is hyperdynamic without regional wall motion abnormalities, LVEF=87%. 4. EKG portion of the study will be reported separately. Pepper Hand MD (Electronically Signed) Final Date: 12 June 2022 22:24 S
[2022-06-09 09:30] LABS: HCG Qualitative Urine. Negative (Negative)
[2022-06-09 09:34] VITALS: BMI 39.9
[2022-06-09 11:46] VITALS: BP 132/81; PULSE 99
[2022-06-09] MEDS: regadenoson 0.4 Mg/5 ml Syringe IVP (11:48)
== END 2022-06-09 09:04 | disposition home or self-care (01) ==
LOC: CDL 09:03
PROVIDERS: PCP Nurse Practitioner Family; Visit Provider Internal Medicine Cardiovascular Disease
DX: R07.9 Chest pain, unspecified (principal); R94.39 Abnormal result of other cardiovascular function study
CPT/HCPCS: 36415; 78452; 81025; 93017; A9500; J2785

== ENCOUNTER 2022-07-05 05:50 | Outpatient (CLI) | payer OTHER, SELFPAY ==
--- NOTE | 2022-07-05 06:00 | XACV_ITS ---
Exam Room: 2 Ht: 150 cm Wt: 90 kg BSA: 1.99 m2 Gender: Female : 1990 Any Known Allergies: Other Exam Priority: Routine Procedure(s): Procedure Description: Diagnostic procedure Procedure Description: Left Heart Catheterization Procedure Description: Coronary IVUS Procedure Description: Miscellaneous Procedure Description: Angio-Seal Procedure Description: Coronary Angiography Diagnostic Cath Status: Elective Diagnostic Findings * INDICATION: 31-year-old woman with past medical history of hypertension, diabetes, tobacco abuse, nonobstructive CAD has been having on and off chest pain symptoms. She had stress test that showed abnormality in LAD territory. Previously she had moderate left circumflex artery stenosis that was FFR negative. * Left Main: mild 30% stenosis, TA: 3 flow. Significant dampening of pressure was noted with engagement of left main artery.. * Left Anterior Descending is a small caliber vessel and has diffuse mild luminal irreglarities. * Circumflex has no significant disease. * Right Coronary Artery has no disease. * Coronary angiography shows right dominance. Interventional Findings * PROCEDURE DETAIL: Although patient had moderate looking left main stenosis however on engagement of the left main artery there was significant dampening of pressure noted. We decided to perform IVUS to confirm significance of left main artery stenosis. IV heparin was administered to maintain ACT above 250 s. Left main artery was engaged with CLS 3.0 guide catheter. Run-through guidewire was crossed into left circumflex artery. IVUS catheter was advanced into the circumflex artery and pullback was performed. Initially it showed significantly low MLA of around 5 mm2. However left main gave appearance of spasm and we administered intracoronary nitroglycerin. Following this IVUS was repeated again. This time dampening resolved and MLA of 6.5 mm2 was found. This confirmed spasm of left main artery with catheter engagement and nonsignificant stenosis. Final angiogram was performed. Patient left the Local Hazmat Driver in a stable condition.. Conclusions 1. Mild to moderate 2. left main artery stenosis. 3. S/p IVUS that confirmed non-critical stenosis and catheter induced spasm of left main artery. Recommendations * Aggressive risk factor modification. * Outpatient cardiology follow up in 4 weeks. Interventional RX Recommendation: medical therapy and/or counseling Diagnostic RX Recommendation: other cardiac therapy w/o CABG/PCI Pressures Phase:Rest AO : 127 / 80 ( 101 ) @ 8:06:00 AM 127 / 78 ( 102 ) @ 8:15:00 AM 129 / 79 ( 104 ) @ 8:15:00 AM 118 / 32 ( 67 ) @ 8:31:00 AM LV : 92 / 7 / 92 @ 8:13:00 AM 150 / 5 / 21 @ 8:13:00 AM 140 / 8 / 20 @ 8:14:00 AM 140 / 6 / 18 @ 8:15:00 AM Valves Phase:DefaultPhase AV : 6.0 @ 9:02:18 AM AV Mean Gradient: 20.0 @ 9:02:18 AM Clinical Evaluation EBL: 5mL-10mL Procedural Details Procedure Consent Obtained. Admit Source: Out Patient. Pre-Procedure Time Out. Identified patient by full name and date of as verbalized by the patient/guarantor. Does the consent match the physician's order: Yes. Accurate & Complete Informed Consent: Yes. Inpatient/Outpatient History & Physical on Chart: Yes. If H&P is completed, is and addenduem needed: No; If yes, is the addendum complete: N/A. Visualize and Verify Site with Patient/Guarantor: N/A. Relevant Radiology Images available: N/A. The risks, benefits, and alternatives of sedation and/or procedure were discussed by physician. The patient agrees to continue. Procedure started. [facility] Clinical Fraility Score: 2: Well. Local Hazmat Driver Indications:CP and abnormal stress test. Chest Pain Symptom Assessment: Atypical Angina. Cardiovascular Instability: No. Correct patient, site and procedure confirmed by cath team. Current diagnosis: Chest Pain. PERRLA. Strong, equal hand metal caster bilaterally. Lungs clear x 5 lobes. IV Site on Arrival: 18 gauge in the right anticubital. IV Fluids: 0.9% NaCl at KVO. 0 mL infused prior to solar lab technician. Pre Procedural Pulses: bilateral radial was 2+. Pre Procedural Pulses: bilateral dorsalis pedis was 2+. Pre Procedural Pulses: bilateral posterior tibial was 1+. Oxygen started at 2liters/min via nasal canula. right groin was prepped with chloroprep then draped in the usual sterile fashion. right radial was prepped with chloroprep then draped in the usual sterile fashion. Physician notified. Baseline sample Acquired. HR: 62 BPM. Physician arrived. Physician scrubbed in. Immediate Pre-Procedure Time Out. Correct Patient: Yes; Correct Procedure: Yes; Correct Site: Yes; Correct Patient Position: Yes; Correct Supplies: Yes; Dried Flammable Prep: Yes; Blood Products Available: N/A;. Lidocaine 1% infiltrated to the right radial. An attempt to gain access to the right radial artery was unsuccessful. Manual pressure was held as needed to stop the bleeding. An attempt to gain access to the right radial artery was unsuccessful. Manual pressure was held as needed to stop the bleeding. Dr Peacock using ultrasound to assit with access. Lidocaine 1% infiltrated to the right groin. An attempt to gain access to the right radial artery was unsuccessful. Manual pressure was held as needed to stop the bleeding. Arterial access obtained with micropuncture set. A 5 djiboutian JL4 catheter in over wire. Multiple views taken of left coronary artery. Catheter out. A 5 djiboutian FR4 catheter in over wire. EDP Sample taken: LV 92/7,92; HR: 57 BPM; SpO2: 95%. EDP Sample taken: LV 150/5,21; HR: 86 BPM; SpO2: 94%. EDP Sample taken: LV 140/8,20; HR: 69 BPM; SpO2: 94%. Pullback taken: LV 140/6,18; AO 127/78(102); Mean: 20mmHg, Peak to Peak: 6mmHg, SEP: 8sec/min; HR: 83 BPM; SpO2: 94%. Catheter out. Multiple views taken of right coronary artery. A Right femoral angiogram was performed to determine safe placement of closure device. 6 djiboutian CLS 3 guide catheter was inserted over the wire. Runthrough guidewire was advanced through the guide catheter to lesion in the mid LAD. IVUS catheter in over runthough. Runthough redirected to Circumflex. IVUS run of left main. Ivus preformed of left main. Ivus of left main performed again. IVUS catheter out. Results checked. Runthrough wire out. Guide catherter out. Physician reviewing IVUS images. Lidocaine 1% infiltrated to the right groin. A Angio-Seal VIP ([facility]) was successful obtaining hemostatsis at the Right Femoral artery insertion site. Angioseal placed without complications. No signs or symptoms of hematoma noted. Sterile dressing applied per usual sterile fashion. Angio-Seal lot number [id number] exp date 01/06/2023. Post Procedure: Pulses reassessed and unchanged. PERRLA. Strong, equal hand metal caster bilaterally. No VTE prophylaxis required. Total IV fluids: 100 mL. Post-op diagnosis: non obstructive CAD. Complications: none. Estimated blood loss: 5mL-10mL. Responsiveness - Normal response to verbal stimuli; alert and oriented, PERRLA. Airway - Unaffected, no intervention required; spontaneous ventilation. Circulation: W/N/L, pulses unchanged. Nausea/Vomiting: No. Procedure completed. Medication's Wasted: Heparin = 4000 units. Medication's Wasted: Nitro = 49.6 mg. Patient transferred by bed to CPRU. Vital chart was stopped. Access Site Site: Right Femoral artery Sheath Size: 6 Fr Hemostasis Method: Angio-Seal VIP ([facility]) Hemostasis Success: Successful Procedure Medications Start: 7:38 AM Stop: 7:38 AM Medication: Versed Amount: 1 mg Route: I.V. Start: 7:38 AM Stop: 7:38 AM Medication: Fentanyl Amount: 50 mcg Route: I.V. Start: 7:46 AM Stop: 7:46 AM Medication: Versed Amount: 1 mg Route: I.V. Start: 7:46 AM Stop: 7:46 AM Medication: Fentanyl Amount: 50 mcg Route: I.V. Start: 7:47 AM Stop: 7:47 AM Medication: Nitrogylcerin Amount: 200 mcg Route: I.A. Start: 7:57 AM Stop: 7:57 AM Medication: Versed Amount: 1 mg Route: I.V. Start: 7:57 AM Stop: 7:57 AM Medication: Fentanyl Amount: 50 mcg Route: I.V. Start: 8:03 AM Stop: 8:03 AM Medication: Versed Amount: 1 mg Route: I.V. Start: 8:03 AM Stop: 8:03 AM Medication: Fentanyl Amount: 50 mcg Route: I.V. Start: 8:22 AM Stop: 8:22 AM Medication: Heparin Amount: 7000 units Route: I.V. Start: 8:30 AM Stop: 8:30 AM Medication: Nitrogylcerin Amount: 200 mcg Route: I.C. I, the attending physician, have reviewed and verified all procedure medications. Yes, all medications given per verbal order History/Risk Factors Hypertension: Yes Dyslipidemia: Yes Peripheral Arterial Disease (PAD): No Myocardial Infarction (AR): No Obesity: No Tobacco Use: Current/Recent(w/in 1 year) Prior Interventions PCI: No CABG: No Valve Surgery: No Report Signatures Finalized by Klaus Peacock MD on 07/09/2022 01:04 PM
[2022-07-05 06:28] LABS: Glucose Point of Care 120 mg/dL (70-110)
[2022-07-05] MEDS: diphenhydrAMINE 50 mg Capsule PO (06:34)
[2022-07-05 06:43] VITALS: BP 123/97; PULSE 82; RESP 16; TEMP 36.8; O2SAT 98; BMI 39.9
[2022-07-05 06:54] LABS: HCG, Serum Qual Negative (Negative)
[2022-07-05 07:11] LABS: Basophils # 0.1 10^3/uL (0.0-0.1); Basophils % 0.9 %; Eosinophils # 0.3 10^3/uL (0.0-0.8); Eosinophils % 2.8 %; Hemoglobin 16.1 g/dL (11.5-15.3); Lymphocytes # 3.4 10^3/uL (0.8-4.8); Lymphocytes % 28.7 %; Mean Corpuscular Hemoglobin 32.3 pg (28.0-34.0); Mean Corpuscular Volume 92.2 fl (81-99); Mean Platelet Volume 10.5 fL (7.4-10.4); Monocytes # 0.9 10^3/uL (0.2-0.9); Monocytes % 7.9 %; Neutrophils # 6.94 10^3/uL (1.8-7.7); Neutrophils % 59.3 %; Nucleated Red Blood Cells % 0 %; Platelet Count 334 10^3/cmm (130-400); Red Blood Count 4.99 10^6/uL (4.1-5.3); Red Cell Distribution Width 11.3 % (12.1-15.1); White Blood Count 11.7 10^3/uL (4.0-10.0)
[2022-07-05 07:21] LABS: Anion Gap 11.5 (5-19); Blood Urea Nitrogen 8 mg/dL (6-20); Calcium 8.9 mg/dL (8.5-10.5); Carbon Dioxide 25 mmol/L (22-29); Chloride 103 mmol/L (98-107); Glomerular Filtration Rate 96.4 mL/min (90-130); Glucose 113 mg/dL (65-115); Osmolality Calculated 281 mOsm/kg (285-295); Potassium 3.5 mmol/L (3.5-5.1); Sodium 136 mmol/L (136-145)
--- NOTE | 2022-07-05 07:33 | P.HP_ITS ---
Same Day Surgery H&P Indication for Procedure/HPI DATE OF PROCEDURE: July 05, 2022 CHIEF COMPLAINT/INDICATIONFOR SURGICAL PROCEDURE: chest pain/abnormal stress test PREOP DIAGNOSIS: Chest pain/abnormal stress test PLANNED PROCEDURE: Operation Date: 07/05/22 07:00 Proposed Procedures p [facility] w/wo [id number] I25.10,R07.9,R06.02(Left) -Klaus Peacock MD Possible percutaneous coronary intervention 31-year-old woman with past medical history of hypertension, diabetes, tobacco abuse, nonobstructive CAD mom has been having on and off chest pain symptoms. She had stress test that showed abnormality in LAD territory. Previously she had moderate left circumflex artery stenosis that was FFR negative. ROS CONSTITUTIONAL: No fever chills weight loss or gain or night sweats. [] HEENT: Normocephalic, atraumatic.[] RESPIRATORY: No cough, sputum, hemoptysis or wheezing.[] CARDIOVASCULAR:Has chest pain GI: no nausea vomiting diarrhea. [] RETREAD SUPERVISOR: No numbness, tingling, weakness or loss of function in any part of the body. [] MUSCULOSKELETAL: No knee or joint pain or rashes. [] Medications/Allergies* Home Medications Medication Instructions Recorded Confirmed Type hydroxyzine HCl 25 mg tablet 25 mg PO BID 02/17/21 07/01/22 History vortioxetine 10 mg tablet 10 mg PO DAILY 08/23/21 07/01/22 History (Trintellix) gabapentin 100 mg capsule 100 mg PO BID 11/19/21 07/01/22 History trazodone 50 mg tablet 50 - 100 mg PO BEDTIME 11/19/21 07/01/22 History adalimumab 40 mg/0.8 mL 40 mg SUBCUT Q14D 05/12/22 07/01/22 History subcutaneous syringe kit (Humira) nitroglycerin 0.4 mg sublingual 0.4 mg sublingual Q5M PRN Chest 05/12/22 07/01/22 History tablet (Nitrostat) Pain Allergies/Adverse Reactions Allergy/AdvReac Type Severity Reaction Status Date / Time amoxicillin Allergy ALGY-Rash Verified 07/05/22 06:36 sulfamethoxazole Allergy ALGY-Hives Verified 07/05/22 06:36 [From Bactrim] trimethoprim [From Bactrim] Allergy ALGY-Hives Verified 07/05/22 06:36 Current Medications: Generic Name Dose Route Start Last Admin Trade Name Jason PRN Reason Stop Dose Admin Sodium Chloride 1,000 mls @ 50 mls/hr 07/05/22 06:00 07/05/22 06:34 Sodium Chloride 0.9% IV 07/06/22 01:59 Not Given .Q20H ONE Pertinent History/Comorbid Conditions* Medical History (Updated 05/19/22 @ 00:01 by KEAGAN Phillips) Anxiety CAD (coronary artery disease) Depression Hidradenitis suppurativa HTN (hypertension) Surgical History (Updated 10/04/21 @ 07:36 by Papo Mcneal DPM) History of breast augmentation Social History Smoking and tobacco status: current every day smoker History of recent travel: No Pertinent Exam Findings alert, oriented x 3, clear to auscultation bilaterally and regular rate & rhythm Conscious Sedation Assessment PATIENT ASSESSED PRIOR TO SEDATION, WITH NO CHANGE NOTED: Yes AIRWAY EVAL/ANESTHESIA PLAN: normal airway, ASA III, Local Anesthesia, Risks, benefits & alternatives of sedation and/or procedure discussed and Patient agrees to continue as planned ADDITIONAL INFORMATION: Moderate sedation Recommendations Surgery/Procedure today (Left heart cath with possible percutaneous coronary intervention) Coding Level of Care Code Acute Journeyman Patternmaker for Gautam Lin
[2022-07-05 09:15] VITALS: BP 121/69; PULSE 75; RESP 22; O2SAT 97
--- NOTE | 2022-07-05 09:18 | PC.NURSE ---
Received pt from recyclable materials collector post [facility]. Pt alert and oriented x4. Pt complains of pain in the right groin at access site. 2 out of 10. Nurse darkened room to help with pain. Pt has been educated on restrictions at this point and stated understanding. Angioseal inserted to right groin with no complications. No hematoma or bruising at site noted. Pt to be transferred to ICU after initial recovery here in CPRU. Pt on vitals machine and will be monitored per protocol.
[2022-07-05 09:30] VITALS: BP 110/69; PULSE 71; RESP 19; O2SAT 95
--- NOTE | 2022-07-05 10:16 | PC.NURSE ---
TO unit Pt brought to unit by CPRU staff. Bedside report given. Pt's site CDI. Pt oriented to room with call light in reach. Parents at bedside.
[2022-07-05 14:26] VITALS: BP 110/69; PULSE 71; RESP 19; O2SAT 95
== END 2022-07-05 14:24 | disposition home or self-care (01) ==
LOC: CCL 05:55 → ICU 09:15
PROVIDERS: Internal Medicine; PCP Nurse Practitioner Family; Visit Provider Internal Medicine Cardiovascular Disease
DX: R07.9 Chest pain, unspecified (principal); R94.39 Abnormal result of other cardiovascular function study; I25.10 Atherosclerotic heart disease of native coronary artery without angina pectoris; I10 Essential (primary) hypertension; E11.9 Type 2 diabetes mellitus without complications; F17.210 Nicotine dependence, cigarettes, uncomplicated; F32.A Depression, unspecified; E78.5 Hyperlipidemia, unspecified
CPT/HCPCS: 36415; 36416; 80048; 82962; 84703; 85025; 92978; 93458; 96361; 96365; 99152; 99153; C1753; C1760; C1769; C1887; C1894; G0269; J1644; J2250; J3010; J3490; J7030; Q0163; Q9967